=== PATIENT | male | born 1955 | race Caucasian/White ===

== ENCOUNTER 2018-05-03 10:08 | Emergency (ER) | payer OTHER ==
--- NOTE | 2018-05-03 10:23 | PDOC ---
History of Present Illness - General History Source: Patient Exam Limitations: No Limitations - History of Present Illness Initial Comments: 05/03/18 11:33 The patient is a 62 year old male with past medical history of HTN, herniated disk, Hep C (?), ulcer, and arthritis (neck) presents to the emergency department complaining of L. inguinal pain for the past 3 days. The patient reports a non radiating pain to the L. inguinal region associated with a lump that comes and goes. The patient reports associated concern of multiple episodes of nonbloody, nonbilious emesis and watery BM (1 day prior). Denies fever, chills, cough or a headache. Denies diarrhea or constipation. Denies chest pain or shortness of breath. Denies dysuria, hematuria, frequency or urgency to urinate. Allergies: NKDA. Social history: Current everyday smoker. Reports the daily use of wine and beer. Reports the use of marijuana and cocaine. Surgical history: Prostate surg. PCP: Gurmeet Rebolledo ([facility]). <Yara Elam - Last Filed: 05/03/18 12:32> <Susan Messina - Last Filed: 05/03/18 18:14> - General Chief Complaint: Pain, Acute Stated Complaint: GROIN PAIN Time Seen by Provider: 05/03/18 10:23 Past History <Yara Elam - Last Filed: 05/03/18 12:32> - Past Medical History Anemia: No Asthma: No Cancer: No Cardiac Disorders: No CVA: No COPD: No CHF: No Dementia: No Diabetes: No Disorders: No HTN: Yes Hypercholesterolemia: No Thyroid Disease: No - Surgical History Neurologic Surgery: No - Suicide/Smoking/Psychosocial Hx Smoking History: Current every day smoker Have you smoked in the past 12 months: Yes Number of Cigarettes Smoked Daily: 8 'Breaking Loose' booklet given: 06/10/16 Hx Alcohol Use: Yes (beer, wine almost daily) Drug/Substance Use Hx: Yes (daily marijuana, no cocaine x 4 years) Substance Use Type: Alcohol, Cocaine, Marijuana Hx Substance Use Treatment: Yes (detox, rehab, [facility] New focus) <Susan Messina - Last Filed: 05/03/18 18:14> - Past Medical History Allergies/Adverse Reactions: Allergies Allergy/AdvReac Type Severity Reaction Status Date / Time No Known Allergies Allergy Verified 05/03/18 10:23 Home Medications: Ambulatory Orders Amlodipine Besylate [Norvasc -] 10 mg PO DAILY 06/03/16 Atorvastatin Ca [Lipitor] 10 mg PO HS 06/03/16 Ranitidine [Zantac -] 150 mg PO BID 06/03/16 Tamsulosin HCl [Flomax] 0.4 mg PO DAILY 06/03/16 Gabapentin [Neurontin -] 300 mg PO Q8H 06/10/16 Ondansetron HCl [Zofran] 4 mg PO TID PRN #9 tablet 05/03/18 Review of Systems - Review of Systems Able to Perform ROS?: Yes Comments:: 05/03/18 11:33 GENERAL/CONSTITUTIONAL: No fever or chills. No weakness. HEAD, EYES, EARS, NOSE AND THROAT: No change in vision. No ear pain or discharge. No sore throat. CARDIOVASCULAR: No chest pain or shortness of breath. RESPIRATORY: No cough, wheezing, or hemoptysis. GASTROINTESTINAL: (+) nausea and vomiting, watery BM. (+) L. inguinal pain w/ a lump. No diarrhea or constipation. GENITOURINARY: No dysuria, frequency, or change in urination. MUSCULOSKELETAL: No joint or muscle swelling or pain. No neck or back pain. SKIN: No rash NEUROLOGIC: No headache, vertigo, loss of consciousness, or change in strength/ sensation. ENDOCRINE: No increased thirst. No abnormal weight change. HEMATOLOGIC/LYMPHATIC: No anemia, easy bleeding, or history of blood clots. ALLERGIC/IMMUNOLOGIC: No hives or skin allergy. <Yara Elam - Last Filed: 05/03/18 12:32> *Physical Exam - Vital Signs Last Vital Signs Temp Pulse Resp BP Pulse Ox 98 F 105 H 18 129/94 99 05/03/18 10:08 05/03/18 10:08 05/03/18 10:08 05/03/18 10:08 05/03/18 10:08 - Physical Exam Comments: 05/03/18 12:32 GENERAL: Awake, alert, and fully oriented, in no acute distress HEAD: No signs of trauma EYES: PERRLA, EOMI, sclera anicteric, conjunctiva clear ENT: Auricles normal inspection, hearing grossly normal, nares patent, oropharynx clear without exudates. Moist mucosa NECK: Normal ROM, supple, no lymphadenopathy, JVD, or masses LUNGS: Breath sounds equal, clear to auscultation bilaterally. No wheezes, and no crackles HEART: Regular rate and rhythm, normal S1 and S2, no murmurs, rubs or gallops ABDOMEN:(+) Mild pain to palpation diffused, worse in the inguinal region w/ Slight bulge, No perceptible increation hernia. Soft, normoactive bowel sounds. No guarding, no rebound. No masses. No CVA tenderness. Normal testicular exam. Normal penial exam. EXTREMITIES: Normal range of motion, no edema. No clubbing or cyanosis. No cords, erythema, or tenderness NEUROLOGICAL: Cranial nerves II through XII grossly intact. Normal speech, normal gait SKIN: Warm, Dry, normal turgor, no rashes or lesions noted. <Yara Elam - Last Filed: 05/03/18 12:32> ED Treatment Course - LABORATORY CBC & Chemistry Diagram: 05/03/18 11:25 05/03/18 11:25 <Yara Elam - Last Filed: 05/03/18 12:32> - LABORATORY CBC & Chemistry Diagram: 05/03/18 11:25 05/03/18 11:25 <Susan Messina - Last Filed: 05/03/18 18:14> Medical Decision Making - Medical Decision Making 05/03/18 17:25 Pt presents to the ED complaining of generalized abdominal pain, along with multiple episodes of nausea and vomiting. <Susan Messina - Last Filed: 05/03/18 18:14> *DC/Admit/Observation/Transfer - Attestations Scribe Attestion: 05/03/18 11:34 Documentation prepared by Yara Elam, acting as biomedical engineering professor for Susan Messina MD. <Yara Elam - Last Filed: 05/03/18 12:32> - Discharge Dispostion Decision to Admit order: No <Susan Messina - Last Filed: 05/03/18 18:14> Diagnosis at time of Disposition: Abdominal pain Qualifiers: Abdominal location: generalized Qualified Code(s): R10.84 - Generalized abdominal pain - Discharge Dispostion Disposition: HOME Condition at time of disposition: Good - Referrals Referrals: Gurmeet Hernandez MD [Primary Care Provider] - Aiden Mckeon MD [Staff Physician] - - Patient Instructions Printed Discharge Instructions: DI for Abdominal Pain-Adult
[2018-05-03 10:27] VITALS: BMI 30.7
[2018-05-03] MEDS ORDERED: ACETAMINOPHEN 1000 MG/100 ML VIAL (NON FORMULARY) IVPB ONE (10:32)
[2018-05-03] MEDS ORDERED: ONDANSETRON 4 MG/2 ML VIAL IVPUSH ONE (10:33)
[2018-05-03] MEDS ORDERED: ACETAMINOPHEN INJECTION 100 ML IVPB ONE (11:09)
[2018-05-03] MEDS ORDERED: ONDANSETRON 4 MG/2 ML VIAL ONE (11:09)
[2018-05-03 11:33] LABS: BASO % 0.3 % (0-2.0); EOS % 0.2 % (0-4.5); HEMATOCRIT 44.2 % (35.4-49); HEMOGLOBIN 15.6 GM/dL (11.7-16.9); LYMPH % 8.5 % (8-40); MCH 33.6 pg (25.7-33.7); MCHC 35.2 g/dl (32.0-35.9); MEAN CELL VOLUME 95.3 fl (80-96); MEAN PLT VOLUME 7.5 fl (7.5-11.1); MONO % 10.4 % (3.8-10.2); NEUT % 80.6 % (42.8-82.8); PLATELET COUNT 256 K/MM3 (134-434); RBC 4.64 M/mm3 (4.00-5.60); RDW 13.2 % (11.9-15.9)
[2018-05-03 11:55] LABS: ALBUMIN 4.7 g/dl (3.4-5.0); ANION GAP 9 (8-16); BLOOD UREA NITROGEN 14 mg/dL (7-18); CALCIUM 9.9 mg/dL (8.5-10.1); CHLORIDE 89 mmol/L (98-107); CO2 26 mmol/L (21-32); CREATININE 1.3 mg/dL (0.7-1.3); GLUCOSE,RANDOM 89 mg/dL (74-106); POTASSIUM 4.5 mmol/L (3.5-5.1); SGOT/AST 25 U/L (15-37); SGPT/ALT 23 U/L (12-78)
[2018-05-03 11:57] LABS: ALK PHOS 60 U/L (45-117)
[2018-05-03 11:59] LABS: SODIUM 124 mmol/L (136-145)
[2018-05-03] MEDS ORDERED: SODIUM CHLORIDE 0.9% 500 ML INFUS.BAG IV ONE (12:38)
[2018-05-03 18:21] VITALS: BP 129/90; PULSE 88; TEMP 98
== END 2018-05-03 18:21 | disposition home or self-care (01) ==
LOC: JER 10:08
PROC: 3E033NZ Introduction of Analgesics, Hypnotics, Sedatives into Peripheral Vein, Percutaneous Approach (ICD-10-PCS; principal; 2018-05-03)
PROC: 3E033GC Introduction of Other Therapeutic Substance into Peripheral Vein, Percutaneous Approach (ICD-10-PCS; 2018-05-03)
DX: R10.84 Generalized abdominal pain (principal); I10 Essential (primary) hypertension; M47.892 Other spondylosis, cervical region
CPT/HCPCS: 36415; 74177-TC; 80053; 83605; 85025; 99282-25; J0131

== ENCOUNTER 2019-02-24 23:01 | Observation (INO) | payer OTHER ==
--- NOTE | 2019-02-24 23:51 | PDOC ---
History of Present Illness <Claire Aguero - Last Filed: 02/25/19 00:46> - General History Source: Patient Exam Limitations: No Limitations - History of Present Illness Initial Comments: 02/24/19 23:44 63 y/o male with PMH of HTN, hepatits C (previously treated) herniated discs, alcohol abuse presented to the ED after having a syncopal episode at home. Patient states that he was going about his normal day, had 3 beers, then a few hours later started to feel diaphoretic, had some epigastric pain and then next thing he knew he was in the EMS. He denies having any chest pains, trouble breathing, numbness or tingling preceding the event. However he does recall urinating on himself. He does state that he suffers from painful hemorrhoids and does endorse that he has been straining alot more recently and did have to strain this AM when he went to the bathroom. He does not recall if he hit his head or not. He had a similar episode like this a few years ago and did not have any real workup done for it in the past. He denies any recent sickness or any recent travel. Timing/Duration: constant Severity: mild <Sofiya Sidhu - Last Filed: 02/25/19 01:26> - General Chief Complaint: Syncope/Near Syncope Stated Complaint: SYNCOPE Time Seen by Provider: 02/24/19 23:18 Past History <Claire Aguero - Last Filed: 02/25/19 00:46> - Travel Traveled outside of the country in the last 30 days: No Close contact w/someone who was outside of country & ill: No - Past Medical History Anemia: No Asthma: No Cancer: No Cardiac Disorders: No CVA: No COPD: No CHF: No Dementia: No Diabetes: No Disorders: No HTN: Yes Hypercholesterolemia: No Thyroid Disease: No - Surgical History Neurologic Surgery: No - Family Disease History Family Disease History: Heart Disease: Father ( from [place] in his 70's) , Brother (had a heart attack at 53) - Suicide/Smoking/Psychosocial Hx Smoking History: Current every day smoker Have you smoked in the past 12 months: Yes Number of Cigarettes Smoked Daily: 8 'Breaking Loose' booklet given: 06/10/16 Hx Alcohol Use: Yes (beer, wine almost daily) Drug/Substance Use Hx: Yes (daily marijuana, no cocaine x 4 years) Substance Use Type: Alcohol, Cocaine, Heroin, Marijuana Hx Substance Use Treatment: Yes (detox, rehab, [facility]) <Sofiya Sidhu - Last Filed: 02/25/19 01:26> - Past Medical History Allergies/Adverse Reactions: Allergies Allergy/AdvReac Type Severity Reaction Status Date / Time No Known Allergies Allergy Verified 05/03/18 10:23 Home Medications: Ambulatory Orders Amlodipine Besylate [Norvasc -] 10 mg PO DAILY 06/03/16 Atorvastatin Ca [Lipitor] 10 mg PO HS 06/03/16 Ranitidine [Zantac -] 150 mg PO BID 06/03/16 Tamsulosin HCl [Flomax] 0.4 mg PO DAILY 06/03/16 Gabapentin [Neurontin -] 300 mg PO Q8H 06/10/16 Ondansetron HCl [Zofran] 4 mg PO TID PRN #9 tablet 05/03/18 Review of Systems - Review of Systems Able to Perform ROS?: Yes Is the patient limited Macedonian proficient: Yes Constitutional: Yes: Diaphoresis HEENTM: No: Blurred Vision Respiratory: No: Cough, Shortness of Breath Cardiac (ROS): Yes: Syncope : No: Dysuria Musculoskeletal: Yes: Back Pain Neurological: Yes: Headache, Weakness <Sofiya Sidhu - Last Filed: 02/25/19 01:26> *Physical Exam - Vital Signs Last Vital Signs Temp Pulse Resp BP Pulse Ox 98.1 F 74 19 112/73 97 02/24/19 23:01 02/24/19 23:01 02/24/19 23:01 02/24/19 23:01 02/24/19 23:01 <Claire Aguero - Last Filed: 02/25/19 00:46> - Physical Exam General Appearance: Yes: Disheveled Neck: positive: Normal Thyroid Respiratory/Chest: positive: Lungs Clear, Normal Breath Sounds. negative: Chest Tender Cardiovascular: positive: Regular Rhythm, Regular Rate, S1, S2. 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 negative: Numbness Deep Tendon Reflexes: Ankle (L): 2+, Ankle (R): 2+, Knee (L): 2+, Knee (R): 2+, Bicep (L): 2+, Bicep (R): 2+, Tricep (L): 2+, Tricep (R): 2+ <Sofiya Sidhu - Last Filed: 02/25/19 01:26> ED Treatment Course - LABORATORY CBC & Chemistry Diagram: 02/25/19 00:03 02/25/19 00:03 - ADDITIONAL ORDERS Additional order review: Laboratory Results 02/25/19 00:03 Sodium 129 L Potassium 3.8 Chloride 96 L Carbon Dioxide 26 Anion Gap 8 BUN 12 Creatinine 0.9 Creat Clearance w eGFR 85.79 Random Glucose 87 Calcium 8.8 Total Bilirubin 0.4 AST 23 ALT 22 Alkaline Phosphatase 52 Creatine Kinase 110 Troponin I < 0.02 Total Protein 7.6 Albumin 3.8 Lipase 199 Alcohol, Quantitative 101.1 H 02/25/19 00:03 RBC 4.14 MCV 95.0 MCHC 35.3 RDW 13.3 MPV 7.3 L Neutrophils % 68.5 Lymphocytes % 18.0 D Monocytes % 9.4 Eosinophils % 3.1 D Basophils % 1.0 D - RADIOLOGY Radiology Studies Ordered: Category Date Time Status CHEST X-RAY PORTABLE* [RAD] Stat Radiology 02/24/19 23:55 Taken <Claire Aguero - Last Filed: 02/25/19 00:46> - LABORATORY CBC & Chemistry Diagram: 02/25/19 00:03 02/25/19 00:03 - RADIOLOGY Radiology Studies Ordered: Category Date Time Status HEAD CT WITHOUT CONTRAST [CT] Stat CT Scan 02/24/19 23:44 Ordered <Sofiya Sidhu - Last Filed: 02/25/19 01:26> Medical Decision Making - Medical Decision Making 02/25/19 00:03 cbc/cmp/amylase/lipase/trop ekg head CT CXRAY neuro consult placed head CT normal trop neg; hyponatremic at 129 microblog placed to symphony for admission 02/25/19 00:08 02/25/19 00:56 <Sofiya Sidhu - Last Filed: 02/25/19 01:26> *DC/Admit/Observation/Transfer - Discharge Dispostion Decision to Admit order: Yes <Claire Aguero - Last Filed: 02/25/19 00:46> - Attestations Physician Attestion: 02/25/19 01:25 sofiya sidhu <Sofiya Sidhu - Last Filed: 02/25/19 01:26> Diagnosis at time of Disposition: Syncope, Hyponatremia - Discharge Dispostion Condition at time of disposition: Guarded
[2019-02-24] MEDS ORDERED: SODIUM CHLORIDE 0.9% 500 ML INFUS.BAG IV ONE (23:54)
--- NOTE | 2019-02-24 23:54 | PDOC ---
Attending Attestation - HPI HPI: 02/25/19 00:00 The patient is a 63 year old male with a PMH of HTN, HepC, EtOH abuse, chronic back pain who presents to the ER for evaluation of a syncopal episode. Patient states he had 3 days today, and had epigastric pain a few hours later. Patient subsequently woke up on the ground. Unknown how long the patient was on the ground for. Unknown if the patient had head trauma. Patient had a similar syncopal episode several year ago but was not evaluated for it. Patient normally has 5-6 beers daily. Brother had an CO at 52 and her mother had an CO in her 60s. The patient denies chest pain, shortness of breath, headache and dizziness. Denies fever, chills, nausea, vomit, diarrhea and constipation. Denies dysuria, frequency, urgency and hematuria. Allergies: NKA Past surgical history: None reported. Social history: Former heroin user, smokes a pack of cigarettes daily, EtOH daily - Physicial Exam PE: 02/25/19 00:45 ADULT EXAM GENERAL: Awake, alert, and fully oriented, in no acute distress HEAD: No signs of trauma EYES: PERRLA, EOMI, sclera anicteric, conjunctiva clear ENT: Auricles normal inspection, hearing grossly normal, nares patent, oropharynx clear without exudates. Moist mucosa NECK: Normal ROM, supple, no lymphadenopathy, JVD, or masses LUNGS: Breath sounds equal, clear to auscultation bilaterally. No wheezes, and no crackles HEART: Regular rate and rhythm, normal S1 and S2, no murmurs, rubs or gallops ABDOMEN: Soft, nontender, normoactive bowel sounds. No guarding, no rebound. No masses EXTREMITIES: Normal range of motion, no edema. No clubbing or cyanosis. No cords , erythema, or tenderness NEUROLOGICAL: Cranial nerves II through XII grossly intact. Normal speech, normal gait SKIN: Warm, Dry, normal turgor, no rashes or lesions noted. <Consuelo Pierre - Last Filed: 02/25/19 00:45> - Resident Resident Name: Unique Sidhu - ED Attending Attestation I have performed the following: I have examined & evaluated the patient, The case was reviewed & discussed with the resident, I agree w/resident's findings & plan - Medical Decision Making 02/25/19 01:14 Patient Name: EFREM SQUIRES THIS IS A PRELIMINARY REPORT FROM [facility] DATE OF SERVICE: 2019-02-25 00:18:22 IMAGES: 174 EXAM: HEAD CT WITHOUT CONTRAST HISTORY: Syncope COMPARISON: None. FINDINGS: The ventricular system is midline and nondilated. The sulcal pattern is normal for the patient's age. There is no bleed, mass, extra-axial fluid collection or mass effect. No skull fracture or skull lesion is identified. The visualized paranasal sinuses and mastoid air cells are clear. IMPRESSION: No acute pathology. 02/25/19 04:18 Pt will be admitted for hyponatremia and syncope and he will be observed overnight, <Claire Aguero - Last Filed: 02/25/19 04:18>
[2019-02-24] MEDS ORDERED: FAMOTIDINE 20 MG/50 ML IVPB 20 MG/50 ML MG IVPB ONE (23:56)
[2019-02-24 23:57] VITALS: BMI 27.8
[2019-02-25 00:14] LABS: EOS % 3.1 % (0-4.5); HEMATOCRIT 39.3 % (35.4-49); HEMOGLOBIN 13.9 GM/dL (11.7-16.9); MCH 33.5 pg (25.7-33.7); MCHC 35.3 g/dl (32.0-35.9); MEAN PLT VOLUME 7.3 fl (7.5-11.1); MONO % 9.4 % (3.8-10.2); NEUT % 68.5 % (42.8-82.8); PLATELET COUNT 210 K/MM3 (134-434); RBC 4.14 M/mm3 (4.00-5.60); RDW 13.3 % (11.9-15.9)
[2019-02-25 00:39] LABS: ALBUMIN 3.8 g/dl (3.4-5.0); ALK PHOS 52 U/L (45-117); ANION GAP 8 MMOL/L (8-16); BILIRUBIN,TOTAL 0.4 mg/dL (0.2-1); BLOOD UREA NITROGEN 12 mg/dL (7-18); CALCIUM 8.8 mg/dL (8.5-10.1); CHLORIDE 96 mmol/L (98-107); CO2 26 mmol/L (21-32); CREATININE 0.9 mg/dL (0.55-1.3); GLUCOSE,RANDOM 87 mg/dL (74-106); LIPASE 199 U/L (73-393); POTASSIUM 3.8 mmol/L (3.5-5.1); SGOT/AST 23 U/L (15-37); SGPT/ALT 22 U/L (13-61); SODIUM 129 mmol/L (136-145); TOT PROT 7.6 g/dl (6.4-8.2)
[2019-02-25] MEDS ORDERED: FAMOTIDINE 20 MG/50 ML IVPB 20 MG/50 ML MG IVPB ONE (00:50)
--- NOTE | 2019-02-25 01:54 | HP ---
CHIEF COMPLAINT: syncope PCP: HISTORY OF PRESENT ILLNESS: Patient is a 63 y/o M w/ PMHx HTN, herniated discs, EtOH abuse, remote polysubstance abuse, hepatitis C s/p completion of treatment, p/w loss of consciousness at home. Pt states he was sitting down at home, began to feel warm , and then woke up on the floor an unspecified amount of time later. Affirms loss of urinary continence, denies trauma to the tongue or blood in his mouth. He has no memory of intervening events. States he had consumed 3 18 oz. beers prior to the episode, consistent with daily alcohol consumption. Otherwise ROS negative. On presentation Pt is afebrile w/ stable vitals. EtOH level 101. Labs unremarkable apart from Na 129 but this is consistent with prior Hx. Head CT negative. ER course was notable for: (1) EtOH 101 (2) Na 129 (3) Head CT negative Recent Travel: PAST MEDICAL HISTORY: As per HPI PAST SURGICAL HISTORY: Social History: Smoking: daily, currently < 1ppd, overall pack years unclear Alcohol: daily Drugs: remote history of heroin and cocaine Family History: non-contributory Allergies No Known Allergies Allergy (Verified 05/03/18 10:23) HOME MEDICATIONS: Home Medications Medication Instructions Recorded Amlodipine Besylate [Norvasc -] 10 mg PO DAILY 06/03/16 Atorvastatin Ca [Lipitor] 10 mg PO HS 06/03/16 Ranitidine [Zantac -] 150 mg PO BID 06/03/16 Tamsulosin HCl [Flomax] 0.4 mg PO DAILY 06/03/16 Gabapentin [Neurontin -] 300 mg PO Q8H 06/10/16 Ondansetron HCl [Zofran] 4 mg PO TID PRN #9 tablet 05/03/18 REVIEW OF SYSTEMS PHYSICAL EXAMINATION Vital Signs - 24 hr 02/24/19 23:01 Temperature 98.1 F Pulse Rate 74 Respiratory 19 Rate Blood Pressure 112/73 O2 Sat by Pulse 97 Oximetry (%) GENERAL: A&Ox3, NAD HEENT: NC/AT, PERRLA, EOMI, MMM, anicteric NECK: Normal range of motion, supple without lymphadenopathy, JVD, or masses. LUNGS: CTA b/l HEART: RRR no m/r/g ABDOMEN: +bs, soft, NT, ND MUSCULOSKELETAL: Normal range of motion at all joints. No bony deformities or tenderness. No CVA tenderness. UPPER EXTREMITIES: 2+ pulses, warm, well-perfused. No cyanosis. No clubbing. No peripheral edema. LOWER EXTREMITIES: 2+ pulses, warm, well-perfused. No calf tenderness. No peripheral edema. 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 Pain to hip flexion limiting LE examination, 5/5 plantar/dorsiflexion b/l PSYCHIATRIC: Cooperative. Good eye contact. Appropriate mood and affect. SKIN: Warm, dry, normal turgor, no rashes or lesions noted, normal capillary refill. Laboratory Results - last 24 hr 02/25/19 02/25/19 00:03 00:03 WBC 9.0 RBC 4.14 Hgb 13.9 Hct 39.3 MCV 95.0 MCH 33.5 MCHC 35.3 RDW 13.3 Plt Count 210 MPV 7.3 L Absolute Neuts (auto) 6.2 Neutrophils % 68.5 Lymphocytes % 18.0 D Monocytes % 9.4 Eosinophils % 3.1 D Basophils % 1.0 D Nucleated RBC % 0 Sodium 129 L Potassium 3.8 Chloride 96 L Carbon Dioxide 26 Anion Gap 8 BUN 12 Creatinine 0.9 Creat Clearance w eGFR 85.79 Random Glucose 87 Calcium 8.8 Total Bilirubin 0.4 AST 23 ALT 22 Alkaline Phosphatase 52 Creatine Kinase 110 Troponin I < 0.02 Total Protein 7.6 Albumin 3.8 Lipase 199 Alcohol, Quantitative 101.1 H ASSESSMENT/PLAN: 63 y/o M w/ PMHx HTN, herniated discs, EtOH abuse, remote polysubstance abuse, hepatitis C s/p completion of treatment, p/w unexplained loss of consciousness at home A: -syncopal episode w/o clear etiology -EtOH abuse -hyponatremia likely chronic 2/2 EtOH -current smoker -herniated disc -BP normotensive, orthostatics checked at POC in ED and negative P: -LR @ 77 -neurology consulted -monitor BMP -phone counselor EtOH and smoking cessation -outpt pain mgmt f/u for herniated discs -restarted home Zantac, held home Flomax in light of syncope -regular diet -full code -SCDs for DVT PPx -observe on med/surg Visit type - Emergency Visit Emergency Visit: Yes ED Registration Date: 02/25/19 Care time: The patient presented to the Emergency Department on the above date and was hospitalized for further evaluation of their emergent condition. - New Patient This patient is new to me today: Yes Date on this admission: 02/25/19 - Critical Care Critical Care patient: No
--- NOTE | 2019-02-25 01:58 | PN ---
Teaching Attending Note Name of Resident: Franco Gallegos ATTENDING PHYSICIAN STATEMENT I saw and evaluated the patient. I reviewed the resident's note and discussed the case with the resident. I agree with the resident's findings and plan as documented. SUBJECTIVE: OBJECTIVE: AAOX3 S1 and s2 CTA good air entry PERRLA alcohol breath ASSESSMENT AND PLAN: this is a 63 y/o male patient with hx of chronic alcohol abuse, Hep C s/p 12 weeks treatment, HTN, presented after the patient had an episode of LOC patient stated that he is doing well in general, he said that tonight he didnt drink that much just 3-4 (18oz) beers usually he drinks more, he does not blame this episode on alcoho, patient was found also to be hyponatremic and according to him he had an episode of urine incontinence Hyponateramia 2/2 chronic beer intake send serum osm send urine osm urine electrolytes Syncope with possible seizure - 2/2 to alcohol 2/2 hyponatremia admit to tele neurology evaluation obtain orthostasis chronic alcohol intake: - CIWA - lorazepam 1mg q6hrs po - lorazepam 2mg IVP for seizure or alcohol withdrawal
[2019-02-25] MEDS ORDERED: LACTATED RINGERS SOLUTION 1,000 ML/1,000 ML INFUS.BAG IV SCH (02:00)
[2019-02-25 06:15] LABS: BASO % 0.9 % (0-2.0); HEMATOCRIT 38.6 % (35.4-49); HEMOGLOBIN 13.3 GM/dL (11.7-16.9); LYMPH % 29.8 % (8-40); MCH 32.8 pg (25.7-33.7); MCHC 34.6 g/dl (32.0-35.9); MEAN CELL VOLUME 94.9 fl (80-96); MEAN PLT VOLUME 7.7 fl (7.5-11.1); MONO % 10.1 % (3.8-10.2); NEUT % 54.2 % (42.8-82.8); PLATELET COUNT 190 K/MM3 (134-434); RBC 4.07 M/mm3 (4.00-5.60); RDW 13.1 % (11.9-15.9); WHITE BLOOD COUNT 6.3 K/mm3 (4.0-10.0)
[2019-02-25 06:41] LABS: ANION GAP 6 MMOL/L (8-16); BLOOD UREA NITROGEN 10 mg/dL (7-18); CALCIUM 8.5 mg/dL (8.5-10.1); CHLORIDE 100 mmol/L (98-107); CO2 24 mmol/L (21-32); CREATININE 0.9 mg/dL (0.55-1.3); GLUCOSE,RANDOM 112 mg/dL (74-106); MAGNESIUM 2.2 mg/dL (1.8-2.4); PHOSPHOROUS 3.5 mg/dL (2.5-4.9); POTASSIUM 4.1 mmol/L (3.5-5.1); SODIUM 130 mmol/L (136-145)
[2019-02-25 07:39] LABS: OSMOLALITY,SERUM 270 mosm/kg (278-305)
--- NOTE | 2019-02-25 07:55 | PN ---
Teaching Attending Note Name of Resident: Elsy Lincoln ATTENDING PHYSICIAN STATEMENT I saw and evaluated the patient. I reviewed the resident's note and discussed the case with the resident. I agree with the resident's findings and plan as documented. SUBJECTIVE: Patient is a 63 y/o male patient with hx of chronic alcohol abuse, Hep C s/p 12 weeks treatment, HTN, presented to ED. with LOC, as per patient that he didn't drink that much just 3-4 (18oz) beers usually he drinks more. He was found to have urinary incontinence. OBJECTIVE: Vital Signs Temperature 98.2 F 02/25/19 06:22 Pulse Rate 70 02/25/19 06:22 Respiratory Rate 19 02/25/19 06:22 Blood Pressure 99/66 02/25/19 06:22 O2 Sat by Pulse Oximetry (%) 96 02/25/19 06:22 GENERAL: The patient is awake, alert, and fully oriented, in no acute distress. HEAD: Normal with no signs of trauma. EYES: PERRL, extraocular movements intact, sclera anicteric, conjunctiva clear. ENT: Ears normal, oropharynx clear without exudates, moist mucous membranes. NECK: Trachea midline, full range of motion, supple. LUNGS: Breath sounds equal, clear to auscultation bilaterally, no wheezes, no crackles, no accessory muscle use. HEART: Regular rate and rhythm, S1, S2 without murmur, rub or gallop. ABDOMEN: Soft, nontender, nondistended, normoactive bowel sounds, no guarding, no rebound, no hepatosplenomegaly, no masses. EXTREMITIES: 2+ pulses, warm, well-perfused, no edema. NEUROLOGICAL: Cranial nerves II through XII grossly intact. Normal speech, gait not observed. PSYCH: Normal mood, normal affect. SKIN: Warm, dry, normal turgor, no rashes or lesions noted CBCD WBC 6.3 K/mm3 (4.0-10.0) 02/25/19 05:55 RBC 4.07 M/mm3 (4.00-5.60) 02/25/19 05:55 Hgb 13.3 GM/dL (11.7-16.9) 02/25/19 05:55 Hct 38.6 % (35.4-49) 02/25/19 05:55 MCV 94.9 fl (80-96) 02/25/19 05:55 MCHC 34.6 g/dl (32.0-35.9) 02/25/19 05:55 RDW 13.1 % (11.9-15.9) 02/25/19 05:55 Plt Count 190 K/MM3 (134-434) 02/25/19 05:55 MPV 7.7 fl (7.5-11.1) 02/25/19 05:55 CMP Sodium 130 mmol/L (136-145) L 02/25/19 05:55 Potassium 4.1 mmol/L (3.5-5.1) 02/25/19 05:55 Chloride 100 mmol/L (98-107) 02/25/19 05:55 Carbon Dioxide 24 mmol/L (21-32) 02/25/19 05:55 Anion Gap 6 MMOL/L (8-16) L 02/25/19 05:55 BUN 10 mg/dL (7-18) 02/25/19 05:55 Creatinine 0.9 mg/dL (0.55-1.3) 02/25/19 05:55 Creat Clearance w eGFR 85.79 (>60) 02/25/19 05:55 Random Glucose 112 mg/dL (74-106) H 02/25/19 05:55 Calcium 8.5 mg/dL (8.5-10.1) 02/25/19 05:55 Total Bilirubin 0.4 mg/dL (0.2-1) 02/25/19 00:03 AST 23 U/L (15-37) 02/25/19 00:03 ALT 22 U/L (13-61) 02/25/19 00:03 Alkaline Phosphatase 52 U/L (45-117) 02/25/19 00:03 Total Protein 7.6 g/dl (6.4-8.2) 02/25/19 00:03 Albumin 3.8 g/dl (3.4-5.0) 02/25/19 00:03 CARDIAC ENZYMES Creatine Kinase 110 U/L (26-308) 02/25/19 00:03 Troponin I < 0.02 ng/ml (0.00-0.05) 02/25/19 05:55 Current Medications Generic Name Dose Route Start Last Admin Trade Name Freq PRN Reason Stop Dose Admin Lactated Ringer's 1,000 ml in 1,000 mls @ 75 mls/hr 02/25/19 02:00 02/25/19 03:44 Lactated Ringers Solution IV 75 mls/hr ASDIR REAGAN Administration Ranitidine HCl 150 mg 02/25/19 10:00 Zantac - PO BID [facility] Home Medications Medication Instructions Recorded Amlodipine Besylate [Norvasc -] 10 mg PO DAILY 06/03/16 Atorvastatin Ca [Lipitor] 10 mg PO HS 06/03/16 Ranitidine [Zantac -] 150 mg PO BID 06/03/16 Tamsulosin HCl [Flomax] 0.4 mg PO DAILY 06/03/16 Gabapentin [Neurontin -] 300 mg PO Q8H 06/10/16 Ondansetron HCl [Zofran] 4 mg PO TID PRN #9 tablet 05/03/18 Laboratory Tests 02/25/19 02/25/19 02/25/19 00:03 06:17 06:17 Urine Osmolality 240 L Ur Random Sodium 38 L Urine Creatinine 52.0 Alcohol, Quantitative 101.[address]: Negative CXR: No acute process ASSESSMENT AND PLAN: Patient is a 63 y/o M with PMHx HTN, herniated discs, EtOH abuse, remote polysubstance abuse, hepatitis C s/p completion of treatment, HTN, presented to ED with syncopal episode. # Acute hyponatremia: with urine osm: 240, urine sodium 38, serum osm. 270 # Alcohol intoxication not withdrawing, librium prn for withdrawel # syncope most likely due to etoh intoxication # Hx of hepatitis C s/p treatment # Hx of HTN will hold since bp on th lower end DVT Px: Lovenox
--- NOTE | 2019-02-25 09:49 | CON.NEURO ---
Consult - Alcohol/Substance Use Hx Alcohol Use: Yes (beer, wine almost daily) - Smoking History Smoking history: Current every day smoker Have you smoked in the past 12 months: Yes Aproximately how many cigarettes per day: 8 Home Medications - Allergies Allergies/Adverse Reactions: Allergies Allergy/AdvReac Type Severity Reaction Status Date / Time No Known Allergies Allergy Verified 05/03/18 10:23 - Home Medications Home Medications: Ambulatory Orders Amlodipine Besylate [Norvasc -] 10 mg PO DAILY 06/03/16 Atorvastatin Ca [Lipitor] 10 mg PO HS 06/03/16 Ranitidine [Zantac -] 150 mg PO BID 06/03/16 Tamsulosin HCl [Flomax] 0.4 mg PO DAILY 06/03/16 Gabapentin [Neurontin -] 300 mg PO Q8H 06/10/16 Ondansetron HCl [Zofran] 4 mg PO TID PRN #9 tablet 05/03/18 Family Disease History - Family Disease History Family Disease History: Other: Father Physical Exam-Neuro Vital Signs: Vital Signs Temperature 98.2 F 02/25/19 06:22 Pulse Rate 70 02/25/19 06:22 Respiratory Rate 19 02/25/19 06:22 Blood Pressure 99/66 02/25/19 06:22 O2 Sat by Pulse Oximetry (%) 96 02/25/19 06:22 Labs: CBC, BMP 02/25/19 05:55 02/25/19 05:55 Assessment/Plan cc Episode of passing out, History of Chronic radicular low back pain HPI 63 year old male history of HTN, Hep C, Herniated disc, Alcohol abuse came with sycopal episode. Patient has episode of passing out, there is incidence of urinaration . Patient denies any seizure like activity, tongue bite. Patient has similar episode in past. There is documentation of episode of incontinence in chart but he denies to me. He does have chronic low back pain and seeing pain managmeent and had work up done in past. Patient has been given COURTNEY several time. He denies any recent trauma, fever or cacner. PMH as above SH,FH,ROS reviewed in chart SH he is smoker and drinks beer everyday, marijuna everyday , Allergies/Adverse Reactions: Allergies Allergy/AdvReac Type Severity Reaction Status Date / Time No Known Allergies Allergy Verified 05/03/18 10:23 Home Medications: Amlodipine Besylate [Norvasc -] 10 mg PO DAILY 06/03/16 Atorvastatin Ca [Lipitor] 10 mg PO HS 06/03/16 Ranitidine [Zantac -] 150 mg PO BID 06/03/16 Tamsulosin HCl [Flomax] 0.4 mg PO DAILY 06/03/16 Gabapentin [Neurontin -] 300 mg PO Q8H 06/10/16 Ondansetron HCl [Zofran] 4 mg PO TID PRN #9 tablet 05/03/18 NEUROLOGICAL EXAMINATION Alert oriented x 3, speech is normal, no neck stiffness EOMI, pupils reactive, no face asymmetry, no tongue bite no pronator drift, 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 syncopal episode, unlikely to be seizure, I recommend to do eeg, no need for brain mri, no need for AED 2. Chronic radicular low back pain ( work up done outpatient , and seeing pain managemnet and had several COURTNEY ) , stable and chronic problem, no evidence of cord compression, he has old L5-s1 radiculopathy PT if he stays in hospital, follow up with pain management as outpatient Thanking you so much Leonel Sanchez MD
[2019-02-25] MEDS ORDERED: RANITIDINE HCL 150 MG TABLET (FP) PO SCH (10:00)
[2019-02-25] MEDS ORDERED: RANITIDINE HCL 150 MG TABLET (FP) ONE (10:24)
--- NOTE | 2019-02-25 10:27 | EKG ---
Test Reason : Blood Pressure : / mmHG Vent. Rate : 072 BPM Atrial Rate : 072 BPM P-R Int : 214 ms QRS Dur : 100 ms QT Int : 400 ms P-R-T Axes : 039 -55 027 degrees QTc Int : 438 ms SINUS RHYTHM WITH 1ST DEGREE A-V BLOCK LEFT ANTERIOR FASCICULAR BLOCK ABNORMAL ECG NO PREVIOUS ECGS AVAILABLE Confirmed by PRANAY MOSLEY MD ([id number]) on 02/25/2019 10:26:48 AM Referred By: Confirmed By:PRANAY MOSLEY MD
[2019-02-25 16:11] VITALS: TEMP 97.2
[2019-02-25] MEDS ORDERED: SODIUM CHLORIDE 250 ML IV STA (16:19)
--- NOTE | 2019-02-25 16:19 | PN ---
Physical Exam: SUBJECTIVE: Patient seen and examined this AM. Has had multiple similar episodes in the past. Unable to recall event however. No repeat syncopal episodes since. OBJECTIVE: Vital Signs Period Temp Pulse Resp BP Sys/Diaz Pulse Ox Last 24 Hr 97.2 F-98.2 F 70-76 18-24 99-112/66-73 96-99 GENERAL: A&Ox3 HEAD: NCAT EYES: PERRL, EOMI ENT: Moist mucous membranes NECK: Supple LUNGS: Diminished breath sounds at the bases, no wheezes, no crackles HEART: Regular rate and rhythm, S1, S2 without murmur ABDOMEN: Soft, Mild but diffuse tenderness to palpation, nondistended, + bowel sounds, no guarding EXTREMITIES: no edema. NEUROLOGICAL: Cranial nerves II through XII grossly intact. SKIN: Warm, dry Laboratory Results - last 24 hr 02/25/19 02/25/19 02/25/19 00:03 00:03 05:55 WBC 9.0 6.3 RBC 4.14 4.07 Hgb 13.9 13.3 Hct 39.3 38.6 MCV 95.0 94.9 MCH 33.5 32.8 MCHC 35.3 34.6 RDW 13.3 13.1 Plt Count 210 190 MPV 7.3 L 7.7 Absolute Neuts (auto) 6.2 3.4 Neutrophils % 68.5 54.2 D Lymphocytes % 18.0 D 29.8 D Monocytes % 9.4 10.1 Eosinophils % 3.1 D 5.0 H Basophils % 1.0 D 0.9 Nucleated RBC % 0 0 Sodium 129 L Potassium 3.8 Chloride 96 L Carbon Dioxide 26 Anion Gap 8 BUN 12 Creatinine 0.9 Creat Clearance w eGFR 85.79 Random Glucose 87 Serum Osmolality Calcium 8.8 Phosphorus Magnesium Total Bilirubin 0.4 AST 23 ALT 22 Alkaline Phosphatase 52 Creatine Kinase 110 Troponin I < 0.02 Total Protein 7.6 Albumin 3.8 Lipase 199 Urine Osmolality Ur Random Sodium Urine Creatinine Alcohol, Quantitative 101.1 H 02/25/19 02/25/19 02/25/19 05:55 05:55 06:17 WBC RBC Hgb Hct MCV MCH MCHC RDW Plt Count MPV Absolute Neuts (auto) Neutrophils % Lymphocytes % Monocytes % Eosinophils % Basophils % Nucleated RBC % Sodium 130 L Potassium 4.1 Chloride 100 Carbon Dioxide 24 Anion Gap 6 L BUN 10 Creatinine 0.9 Creat Clearance w eGFR 85.79 Random Glucose 112 H Serum Osmolality 270 L Calcium 8.5 Phosphorus 3.5 Magnesium 2.2 Total Bilirubin AST ALT Alkaline Phosphatase Creatine Kinase Troponin I < 0.02 Total Protein Albumin Lipase Urine Osmolality 240 L Ur Random Sodium Urine Creatinine Alcohol, Quantitative 02/25/19 06:17 WBC RBC Hgb Hct MCV MCH MCHC RDW Plt Count MPV Absolute Neuts (auto) Neutrophils % Lymphocytes % Monocytes % Eosinophils % Basophils % Nucleated RBC % Sodium Potassium Chloride Carbon Dioxide Anion Gap BUN Creatinine Creat Clearance w eGFR Random Glucose Serum Osmolality Calcium Phosphorus Magnesium Total Bilirubin AST ALT Alkaline Phosphatase Creatine Kinase Troponin I Total Protein Albumin Lipase Urine Osmolality Ur Random Sodium 38 L Urine Creatinine 52.0 Alcohol, Quantitative Active Medications Lactated Ringer's (Lactated Ringers Solution) 1,000 ml in 1,000 mls @ 75 mls/ hr IV ASDIR [facility] Last Admin: 02/25/19 03:44 Dose: 75 mls/hr Sodium Chloride (Normal Saline -) 250 mls @ 250 mls/hr IV ASDIR STA Stop: 02/25/19 17:18 Ranitidine HCl (Zantac -) 150 mg PO BID [facility] Last Admin: 02/25/19 10:20 Dose: 150 mg Tamsulosin HCl (Flomax -) 0.4 mg PO BID [facility] Ambulatory Orders Ranitidine [Zantac -] 150 mg PO BID 06/03/16 Tamsulosin HCl [Flomax] 0.4 mg PO BID 06/03/16 Cyclobenzaprine HCl 5 mg PO TID 02/25/19 Lisinopril/Hydrochlorothiazide [Lisinopril-Hctz 20-25 mg Tab] 1 each PO DAILY Oxycodone HCl/Acetaminophen [Percocet 5-325 mg Tablet] 1 tab PO Q8H PRN IMAGING: -CXR: A single view of the chest reveals a semi-apical lordotic projection, clear lungs, prominent mediastinum and sharp angles. There is a slight scoliosis with degenerative changes. An acute process is not seen. -Head CT without contrast: No evidence of acute intracranial hemorrhage, edema, midline shift, mass effect, or skull fracture. There is no CT evidence of acute territorial infarction. -EKG: SINUS RHYTHM WITH 1ST DEGREE A-V BLOCK, LAFB, VR 72, QTc 438 ASSESSMENT/PLAN: 63 y/o M w/ PMHx HTN, herniated discs, EtOH abuse, remote polysubstance abuse, hepatitis C (s/p completion of treatment) presents after an episode of loss of consciousness #Syncopal episode -Unclear etiology in the setting of EtOH use with chronic Opiate Use; Less likely cardiac or neuro causes -Orthostatic vitals negative -Imaging noted above -Neurology (Dr. Sanchez) counsulted, appreciate rec's -Tele -Neurochecks Q2H -Seizure, Fall precautions -EEG -LR @ 75 mls/hr #EtOH abuse -CIWA currently 4 -Continue to monitor for signs of withdrawl -counselled again on EtOH cessation; Patient is not interested in going to AA meetings or Detox #Hyponatremia likely chronic 2/2 EtOH -Urine and Serum Osms reviewed -Continue to monitor #BPH -Home dose Tamsulosin #HTN--Currently normotensive -Hold home dose antihypertensives #FEN -LR@ 75 -Hyponatremia -Regular diet #PPx -DVT: SCDs Visit type - Emergency Visit Emergency Visit: Yes ED Registration Date: 02/25/19 Care time: The patient presented to the Emergency Department on the above date and was hospitalized for further evaluation of their emergent condition. - New Patient This patient is new to me today: Yes Date on this admission: 02/25/19 - Critical Care Critical Care patient: No - Discharge Referral Referred to [facility] Med P.C.: No
[2019-02-25] MEDS ORDERED: chlordiazePOXIDE 5 MG CAPSULE PO PRN (17:11)
[2019-02-25 19:22] VITALS: BP 108/74; PULSE 79
[2019-02-25] MEDS ORDERED: TAMSULOSIN HCL 0.4 MG CAP PO SCH (22:00)
[2019-02-26] MEDS ORDERED: SODIUM CHLORIDE 1,000 ML IV SCH (08:15)
--- NOTE | 2019-02-26 08:48 | DS ---
Physical Exam: SUBJECTIVE: Informed that patient left AMA Overnight. OBJECTIVE: Vital Signs Period Temp Pulse Resp BP Sys/Diaz Pulse Ox Last 24 Hr 97.2 F 74-79 18-24 102-108/68-74 98-99 PHYSICAL EXAM Unable to perform as patient left AMA overnight. LABS Laboratory Last Values WBC 6.3 K/mm3 (4.0-10.0) 02/25/19 05:55 RBC 4.07 M/mm3 (4.00-5.60) 02/25/19 05:55 Hgb 13.3 GM/dL (11.7-16.9) 02/25/19 05:55 Hct 38.6 % (35.4-49) 02/25/19 05:55 MCV 94.9 fl (80-96) 02/25/19 05:55 MCH 32.8 pg (25.7-33.7) 02/25/19 05:55 MCHC 34.6 g/dl (32.0-35.9) 02/25/19 05:55 RDW 13.1 % (11.9-15.9) 02/25/19 05:55 Plt Count 190 K/MM3 (134-434) 02/25/19 05:55 MPV 7.7 fl (7.5-11.1) 02/25/19 05:55 Absolute Neuts (auto) 3.4 K/mm3 (1.5-8.0) 02/25/19 05:55 Neutrophils % 54.2 % (42.8-82.8) D 02/25/19 05:55 Lymphocytes % 29.8 % (8-40) D 02/25/19 05:55 Monocytes % 10.1 % (3.8-10.2) 02/25/19 05:55 Eosinophils % 5.0 % (0-4.5) H 02/25/19 05:55 Basophils % 0.9 % (0-2.0) 02/25/19 05:55 Nucleated RBC % 0 % (0-0) 02/25/19 05:55 Sodium 130 mmol/L (136-145) L 02/25/19 05:55 Potassium 4.1 mmol/L (3.5-5.1) 02/25/19 05:55 Chloride 100 mmol/L (98-107) 02/25/19 05:55 Carbon Dioxide 24 mmol/L (21-32) 02/25/19 05:55 Anion Gap 6 MMOL/L (8-16) L 02/25/19 05:55 BUN 10 mg/dL (7-18) 02/25/19 05:55 Creatinine 0.9 mg/dL (0.55-1.3) 02/25/19 05:55 Creat Clearance w eGFR 85.79 (>60) 02/25/19 05:55 Random Glucose 112 mg/dL (74-106) H 02/25/19 05:55 Serum Osmolality 270 mosm/kg (278-305) L 02/25/19 05:55 Calcium 8.5 mg/dL (8.5-10.1) 02/25/19 05:55 Phosphorus 3.5 mg/dL (2.5-4.9) 02/25/19 05:55 Magnesium 2.2 mg/dL (1.8-2.4) 02/25/19 05:55 Total Bilirubin 0.4 mg/dL (0.2-1) 02/25/19 00:03 AST 23 U/L (15-37) 02/25/19 00:03 ALT 22 U/L (13-61) 02/25/19 00:03 Alkaline Phosphatase 52 U/L (45-117) 02/25/19 00:03 Creatine Kinase 110 U/L (26-308) 02/25/19 00:03 Troponin I < 0.02 ng/ml (0.00-0.05) 02/25/19 05:55 Total Protein 7.6 g/dl (6.4-8.2) 02/25/19 00:03 Albumin 3.8 g/dl (3.4-5.0) 02/25/19 00:03 Lipase 199 U/L (73-393) 02/25/19 00:03 Urine Osmolality 240 mosm/kg (300-900) L 02/25/19 06:17 Ur Random Sodium 38 MMOL/L (40-220) L 02/25/19 06:17 Urine Creatinine 52.0 mg/dL (20-320) 02/25/19 06:17 Alcohol, Quantitative 101.1 mg/dL (0.0-5.0) H 02/25/19 00:03 IMAGING: -CXR: A single view of the chest reveals a semi-apical lordotic projection, clear lungs, prominent mediastinum and sharp angles. There is a slight scoliosis with degenerative changes. An acute process is not seen. -Head CT without contrast: No evidence of acute intracranial hemorrhage, edema, midline shift, mass effect, or skull fracture. There is no CT evidence of acute territorial infarction. -EKG: SINUS RHYTHM WITH 1ST DEGREE A-V BLOCK, LAFB, VR 72, QTc 438 HOSPITAL COURSE: Date of Admission:02/25/19 Date of Discharge: 02/26/19 63 y/o M w/ PMHx HTN, herniated discs, EtOH abuse, remote polysubstance abuse, hepatitis C (s/p completion of treatment) presents after an episode of loss of consciousness. Imaging was done noted above. Orthostatic vital signs negative. Patient was hydrated with IVF. Neurology was consulted and recommended patient have an EEG done. Patient did not show signs of Active EtOH withdrawal during his hospital stay. Patient was additionally counselled on EtOH cessation however he did not want to attend AA/NA meetings nor did he want to enter into a detox program. I was informed this AM that patient left AMA overnight; Thus an EEG was not done. Minutes to complete discharge: 36 Discharge Summary Reason For Visit: HYPONATREMIA,SYNCOPE Condition: Improved - Instructions Diet, Activity, Other Instructions: You were admitted to the hospital because you had a syncopal episode. You were evaluated by neurologist. Follow up with the following physicians: 1. PCP in one week 2. Neurology--Dr. Sanchez in one week to follow up the results of your EEG PLEASE STOP USING ALCOHOL Please return to the ER if you have any signs or symptoms of chest pain, shortness of breath, uncontrollable fever, chills, nausea, vomiting, numbness, tingling, or weakness in any part of your body, changes in vision, slurred speech, changes in speech/gait, or dizziness. Please return to the ER if symptoms persist, worsen, or new symptoms arise. Referrals: Leonel Sanchez MD [Staff Physician] - Disposition: AGAINST MEDICAL ADVICE - Home Medications Comprehensive Discharge Medication List: Ambulatory Orders Ranitidine [Zantac -] 150 mg PO BID 06/03/16 Tamsulosin HCl [Flomax] 0.4 mg PO BID 06/03/16 Cyclobenzaprine HCl 5 mg PO TID 02/25/19 Lisinopril/Hydrochlorothiazide [Lisinopril-Hctz 20-25 mg Tab] 1 each PO DAILY Oxycodone HCl/Acetaminophen [Percocet 5-325 mg Tablet] 1 tab PO Q8H PRN This patient is new to me today: No Emergency Visit: Yes ED Registration Date: 02/25/19 Care time: The patient presented to the Emergency Department on the above date and was hospitalized for further evaluation of their emergent condition. Critical Care patient: No - Discharge Referral Referred to [facility] Med P.C.: No
[2019-02-26] MEDS ORDERED: ENOXAPARIN NA (PORCINE) 40 MG/0.4 ML DISP.SYRIN SQ SCH (10:00)
== END 2019-02-25 20:26 | disposition left against medical advice (07) ==
LOC: JER 23:01 → JERBED 02-25 00:47
PROVIDERS: ADMIT Internal Medicine; ATTEND Internal Medicine
PROC: 3E033GC Introduction of Other Therapeutic Substance into Peripheral Vein, Percutaneous Approach (ICD-10-PCS; principal; 2019-02-25)
PROC: 3E0337Z Introduction of Electrolytic and Water Balance Substance into Peripheral Vein, Percutaneous Approach (ICD-10-PCS; 2019-02-25)
DX: R55 Syncope and collapse (principal); E87.1 Hypo-osmolality and hyponatremia; I10 Essential (primary) hypertension; B18.2 Chronic viral hepatitis C; F10.10 Alcohol abuse, uncomplicated; F17.210 Nicotine dependence, cigarettes, uncomplicated; M54.5 Low back pain; G89.29 Other chronic pain; N40.0 Benign prostatic hyperplasia without lower urinary tract symptoms
CPT/HCPCS: 36415; 70450-TC; 71045-TC-FY; 80048; 80053; 80307; 82540; 82550; 82570; 83690; 83735; 83930; 83935; 84100; 84300; 84484; 85025; 93005; 93010; 96361; 96365; 99284-25; G0378

== ENCOUNTER 2022-09-12 10:11 | Inpatient (IN) | payer MEDICARE, OTHER ==
[2022-09-12] MEDS ORDERED: SODIUM CHLORIDE 0.9% 500 ML INFUS.BAG IV ONE (10:38)
[2022-09-12 10:48] VITALS: BMI 24.3
[2022-09-12] MEDS ORDERED: ONDANSETRON 4 MG/2 ML VIAL IVPUSH ONE (10:53)
[2022-09-12] MEDS ORDERED: ACETAMINOPHEN INJECTION 100 ML IVPB ONE ×2 (11:07→21:07)
[2022-09-12] MEDS ORDERED: ONDANSETRON 4 MG/2 ML VIAL ONE (11:07)
[2022-09-12] MEDS ORDERED: ACETAMINOPHEN 1000 MG/100 ML BAG IVPB ONE ×2 (11:11→20:35)
[2022-09-12 11:36] LABS: CHLORIDE 79 mmol/L (98-107); SODIUM 122 mmol/L (136-145)
[2022-09-12 11:38] LABS: EPI CELLS 1 /uL (0-25.1); HYALINE CASTS 0 /uL (0-3.1); PH,URINE 8.5 (5.0-8.0); URINE APPEARANCE CLEAR; URINE BACTERIA 0 /uL (0-1359); URINE BILIRUBIN NEGATIVE (NEGATIVE); URINE COLOR YELLOW; URINE GLUCOSE (UA) NEGATIVE (NEGATIVE); URINE KETONE NEGATIVE (NEGATIVE); URINE LEUK ESTERASE TRACE (NEGATIVE); URINE NITRITE NEGATIVE (NEGATIVE); URINE PROTEIN NEGATIVE (NEGATIVE); URINE RBC 8 /uL (0-23.9); URINE WBC 10 /uL (0-25.8)
[2022-09-12 11:38] LABS: ANION GAP 11 MMOL/L (8-16); BLOOD UREA NITROGEN 8.8 mg/dL (7-18); CALCIUM 9.3 mg/dL (8.5-10.1); CO2 33 mmol/L (21-32)
[2022-09-12 11:39] LABS: ALBUMIN 3.5 g/dl (3.4-5.0); GLUCOSE,RANDOM 81 mg/dL (74-106)
[2022-09-12 11:41] LABS: CREATININE 1.1 mg/dL (0.55-1.3); SGOT/AST 199 U/L (15-37); SGPT/ALT 81 U/L (13-61)
[2022-09-12 11:43] LABS: BILIRUBIN,TOTAL 1.3 mg/dL (0.2-1); TOT PROT 7.3 g/dl (6.4-8.2)
[2022-09-12 11:44] LABS: ALK PHOS 59 U/L (45-117)
[2022-09-12 12:13] LABS: LIPASE 164 U/L (73-393)
[2022-09-12] MEDS ORDERED: POTASSIUM CHLORIDE TABS 20 MEQ TABLET.ER (FP) PO ONE (12:56)
[2022-09-12 13:12] LABS: BASO % 1.4 % (0-2.0); EOS % 0.2 % (0-4.5); HEMATOCRIT 33.2 % (35.4-49); HEMOGLOBIN 12.2 GM/dL (11.7-16.9); MCH 32.2 pg (25.7-33.7); MCHC 36.7 g/dl (32.0-35.9); MEAN CELL VOLUME 87.7 fl (80-96); MEAN PLT VOLUME 8.4 fl (7.5-11.1); MONO % 5.9 % (3.8-10.2); NEUT % 87.5 % (42.8-82.8); PLATELET COUNT 242 10^3/uL (134-434); RBC 3.78 M/mm3 (4.00-5.60); RDW 14.8 % (11.9-15.9); WHITE BLOOD COUNT 4.7 K/mm3 (4.0-10.0)
[2022-09-12] MEDS ORDERED: POTASSIUM CHLORIDE ORAL LIQUID 20 MEQ/15 ML PO ONE (14:07)
[2022-09-12] MEDS ORDERED: POTASSIUM CHLORIDE ORAL LIQUID 20 MEQ/15 ML ONE (14:11)
[2022-09-12] MEDS ORDERED: MAGNESIUM CITRATE 300 ML BOTTLE PO ONE (15:10)
[2022-09-12] MEDS ORDERED: MAGNESIUM HYDROX 2400MG/30ML ORAL SUSPENSION 30 ML CUP PO ONE (15:37)
[2022-09-12] MEDS ORDERED: MAGNESIUM HYDROX 2400MG/30ML ORAL SUSPENSION 30 ML CUP ONE (15:51)
[2022-09-12] MEDS ORDERED: D5-NS + 20 MEQ KCL - 20 MEQ/1,000 ML INFUS.BAG IV SCH (16:45)
[2022-09-12] MEDS ORDERED: LEVOTHYROXINE SODIUM 100 MCG 5 ML VIAL IVPUSH SCH (16:45)
[2022-09-12 21:17] LABS: BLOOD UREA NITROGEN 9.8 mg/dL (7-18); CALCIUM 8.4 mg/dL (8.5-10.1)
[2022-09-12 21:21] LABS: CREATININE 1.1 mg/dL (0.55-1.3)
[2022-09-12] MEDS ORDERED: CHLORHEXIDINE GLUCONATE 4% CLEANSER FOR DECOLONIZATION TP SCH (22:00)
[2022-09-12] MEDS ORDERED: ATORVASTATIN CA 40 MG TABLET (FP) PO SCH (22:00)
[2022-09-12] MEDS ORDERED: TAMSULOSIN HCL 0.4 MG CAP PO SCH (22:00)
[2022-09-12] MEDS ORDERED: MUPIROCIN 2% TOPICAL OINTMENT FOR DECOLONIZATION NS SCH (22:00)
[2022-09-12] MEDS ORDERED: TAMSULOSIN HCL 0.4 MG CAP ONE (22:57)
[2022-09-12] MEDS ORDERED: ATORVASTATIN CA 40 MG TABLET (FP) ONE (22:57)
[2022-09-12] MEDS ORDERED: KCL 10 MEQ IVPB 10 MEQ/100 ML INFUS.BAG IVPB ONE (23:35)
[2022-09-12] MEDS ORDERED: HYDROCORTISONE SOD SUCCINATE 100 MG/2 ML VIAL ONE (23:35)
[2022-09-12] MEDS: HYDROCORTISONE SOD SUCCINATE 100 MG/2 ML VIAL IVPB SCH (23:49)
[2022-09-13] MEDS ORDERED: oxyCODONE HCL 5 MG TABLET PO PRN (00:17)
[2022-09-13] MEDS: KCL 10 MEQ IVPB 10 MEQ/100 ML INFUS.BAG IVPB SCH ×2 (01:05→02:50)
[2022-09-13 02:18] VITALS: BP 98/68; PULSE 61; RESP 20; TEMP 98.3
[2022-09-13] MEDS ORDERED: KCL 10 MEQ IVPB 10 MEQ/100 ML INFUS.BAG IVPB ONE (02:47)
[2022-09-13] MEDS ORDERED: HYDROCORTISONE SOD SUCCINATE 100 MG/2 ML VIAL ONE (06:12)
[2022-09-13] MEDS: HYDROCORTISONE SOD SUCCINATE 100 MG/2 ML VIAL IVPB SCH (06:25)
[2022-09-13] MEDS ORDERED: LIOTHYRONINE SODIUM 5 MCG TABLET PO SCH (07:00)
[2022-09-13 07:55] LABS: HEMATOCRIT 31.5 % (35.4-49); HEMOGLOBIN 11.3 GM/dL (11.7-16.9); MCH 31.2 pg (25.7-33.7); MCHC 35.9 g/dl (32.0-35.9); MEAN PLT VOLUME 8.5 fl (7.5-11.1); PLATELET COUNT 297 10^3/uL (134-434); RBC 3.62 M/mm3 (4.00-5.60); RDW 14.7 % (11.9-15.9); WHITE BLOOD COUNT 5.3 K/mm3 (4.0-10.0)
[2022-09-13 08:12] LABS: ALBUMIN 3.2 g/dl (3.4-5.0); CALCIUM 8.2 mg/dL (8.5-10.1); MAGNESIUM 1.6 mg/dL (1.8-2.4)
[2022-09-13 08:15] LABS: CREATININE 1.1 mg/dL (0.55-1.3); PHOSPHOROUS 2.9 mg/dL (2.5-4.9)
[2022-09-13 08:16] LABS: TOT PROT 6.4 g/dl (6.4-8.2)
[2022-09-13] MEDS ORDERED: PANTOPRAZOLE 20 MG TABLET PO SCH (10:00)
[2022-09-13] MEDS ORDERED: PARoxetine HCL 20 MG TABLET PO SCH (10:00)
[2022-09-13] MEDS ORDERED: ENOXAPARIN NA (PORCINE) 40 MG/0.4 ML DISP.SYRIN SQ SCH (10:00)
== END 2022-09-13 09:25 | disposition left against medical advice (07) | DRG 643 ==
LOC: JER 10:11 → JERBED 15:12
PROVIDERS: ADMIT Family Medicine; ATTEND Family Medicine
DX: E89.0 Postprocedural hypothyroidism (principal); U07.1 COVID-19; E87.1 Hypo-osmolality and hyponatremia; J90 Pleural effusion, not elsewhere classified; R18.8 Other ascites; N17.9 Acute kidney failure, unspecified; E78.5 Hyperlipidemia, unspecified; N40.0 Benign prostatic hyperplasia without lower urinary tract symptoms; I10 Essential (primary) hypertension; C32.9 Malignant neoplasm of larynx, unspecified; C73 Malignant neoplasm of thyroid gland; E87.6 Hypokalemia; J44.9 Chronic obstructive pulmonary disease, unspecified; K59.00 Constipation, unspecified; B19.20 Unspecified viral hepatitis C without hepatic coma; N28.1 Cyst of kidney, acquired; I07.1 Rheumatic tricuspid insufficiency; K76.0 Fatty (change of) liver, not elsewhere classified; K80.80 Other cholelithiasis without obstruction; Z93.0 Tracheostomy status
CPT/HCPCS: 0241U-QW; 36415; 71045-TC-FY; 74177-TC; 80048; 80053; 80061; 80307; 81003; 82436; 82570; 82962; 83605; 83690; 83735; 84100; 84156; 84300; 84436; 84439; 84443; 84481; 84484; 85025; 85027; 87086; 93005; 93010; 99285-25; Q9967

== ENCOUNTER 2022-11-19 02:16 | Inpatient (IN) | payer MEDICARE, OTHER ==
[2022-11-19 02:52] VITALS: BMI 25.9
[2022-11-19] MEDS ORDERED: BENZOCAINE/MENTHOL (CHLORASEPTIC ) LOZENGE MM PRN (03:44)
[2022-11-19] MEDS ORDERED: ONDANSETRON *ODT* 4 MG TABLET SL PRN (03:44)
[2022-11-19] MEDS ORDERED: IBUPROFEN 400 MG TABLET (FP) PO PRN (03:44)
[2022-11-19] MEDS ORDERED: LOPERAMIDE HCL 2 MG CAPSULE PO PRN (03:44)
[2022-11-19] MEDS ORDERED: IBUPROFEN 600 MG TABLET (FP) PO PRN (03:44)
[2022-11-19] MEDS ORDERED: MAGNESIUM HYDROX 2400MG/30ML ORAL SUSPENSION 30 ML CUP PO PRN (03:44)
[2022-11-19] MEDS ORDERED: METHOCARBAMOL 500 MG TABLET PO PRN (03:44)
[2022-11-19] MEDS ORDERED: hydrOXYzine PAMOATE 25 MG CAPSULE (FP) PO PRN (03:44)
[2022-11-19] MEDS ORDERED: NALOXONE HCL (KLOXXADO) 8 MG SPRAY NS PRN (03:44)
[2022-11-19] MEDS ORDERED: BISMUTH SUBSALICYLATE 524 MG/30 ML PO PRN (03:44)
[2022-11-19] MEDS ORDERED: DICYCLOMINE HCL 10 MG CAPSULE PO PRN (03:44)
[2022-11-19] MEDS ORDERED: POLYETHYLENE GLYCOL (HEALTHYLAX) 3350 17 GM PACKET PO PRN (03:44)
[2022-11-19] MEDS ORDERED: MAG HYDROX/AL HYDROX/SIMETH 30 ML UNIT-DOSE CUP PO PRN (03:44)
[2022-11-19] MEDS ORDERED: ACETAMINOPHEN 325 MG TABLET (FP) PO PRN ×2 (03:44)
[2022-11-19] MEDS ORDERED: cloNIDine HCL 0.1 MG TABLET PO ONE (03:48)
[2022-11-19] MEDS ORDERED: AMOX TR/POT CLAV 875MG/125MG TABLETS (FP) PO SCH (08:00)
[2022-11-19] MEDS ORDERED: chlordiazePOXIDE HCL 25 MG CAPSULE PO PRN (09:54)
[2022-11-19] MEDS ORDERED: methaDONE HCL 10 MG TABLET (FOR DETOX USE ONLY) PO ONE (09:54)
[2022-11-19] MEDS ORDERED: cloNIDine HCL 0.1 MG TABLET PO PRN (09:54)
[2022-11-19] MEDS ORDERED: PRENATAL VITAMINS W/ FOLIC ACID TABLET (FP) PO SCH (10:00)
[2022-11-19] MEDS ORDERED: chlordiazePOXIDE HCL 25 MG CAPSULE ONE (10:12)
[2022-11-19] MEDS ORDERED: methaDONE HCL 10 MG TABLET (FOR DETOX USE ONLY) ONE (10:13)
[2022-11-19] MEDS ORDERED: chlordiazePOXIDE HCL 25 MG CAPSULE PO SCH (11:00)
[2022-11-19 14:13] VITALS: BP 146/102; PULSE 86; RESP 16; TEMP 97.1
[2022-11-19] MEDS ORDERED: MELATONIN 5 MG TABLETS PO SCH (22:00)
[2022-11-19] MEDS ORDERED: THIAMINE HCL 100 MG TABLET (FP) PO SCH (22:00)
[2022-11-21] MEDS ORDERED: chlordiazePOXIDE HCL 25 MG CAPSULE PO SCH (05:00)
[2022-11-21] MEDS ORDERED: methaDONE HCL 10 MG TABLET (FOR DETOX USE ONLY) PO ONE (10:00)
[2022-11-22] MEDS ORDERED: chlordiazePOXIDE HCL 10 MG CAPSULE PO PRN
[2022-11-22] MEDS ORDERED: chlordiazePOXIDE HCL 10 MG CAPSULE PO SCH (05:00)
[2022-11-23] MEDS ORDERED: chlordiazePOXIDE HCL 10 MG CAPSULE PO SCH (05:00)
[2022-11-23] MEDS ORDERED: methaDONE HCL 10 MG TABLET (FOR DETOX USE ONLY) PO ONE (10:00)
[2022-11-24] MEDS ORDERED: chlordiazePOXIDE HCL 10 MG CAPSULE PO ONE (05:00)
== END 2022-11-20 08:10 | disposition home or self-care (01) | DRG 897 ==
LOC: YASAS 02:16 → Y3N 06:24 → Y6N 07:13
PROVIDERS: ADMIT Allergy & Immunology; ATTEND Allergy & Immunology
PROC: HZ2ZZZZ Detoxification Services for Substance Abuse Treatment (ICD-10-PCS; principal; 2022-11-19)
DX: F11.23 Opioid dependence with withdrawal (principal); L03.221 Cellulitis of neck; F10.230 Alcohol dependence with withdrawal, uncomplicated; F32.A Depression, unspecified; E89.0 Postprocedural hypothyroidism; I10 Essential (primary) hypertension; J44.9 Chronic obstructive pulmonary disease, unspecified; E78.5 Hyperlipidemia, unspecified; Z85.21 Personal history of malignant neoplasm of larynx; Z90.02 Acquired absence of larynx; Z93.0 Tracheostomy status; Z87.891 Personal history of nicotine dependence; Z99.89 Dependence on other enabling machines and devices
CPT/HCPCS: C9803-CS; U0003; U0005

== ENCOUNTER 2022-11-19 04:46 | Emergency (ER) | payer MEDICARE, OTHER ==
[2022-11-19 04:59] VITALS: BP 138/95; PULSE 74; RESP 18; TEMP 97.8; BMI 25.9
== END 2022-11-19 06:02 | disposition home or self-care (01) ==
LOC: JER 04:46
DX: F10.10 Alcohol abuse, uncomplicated (principal); F11.10 Opioid abuse, uncomplicated
CPT/HCPCS: 99283-25

== ENCOUNTER 2022-11-19 11:16 | Emergency (ER) | payer MEDICARE, OTHER ==
[2022-11-19 11:24] VITALS: RESP 20; TEMP 98.7; BMI 25.9
[2022-11-19 13:40] VITALS: BP 120/77; PULSE 76
== END 2022-11-19 13:43 | disposition home or self-care (01) ==
LOC: JER 11:16
DX: F10.90 Alcohol use, unspecified, uncomplicated (principal); F11.10 Opioid abuse, uncomplicated

== ENCOUNTER 2022-12-13 12:06 | Inpatient (IN) | payer MEDICARE, OTHER ==
[2022-12-13 13:14] VITALS: BMI 25.8
[2022-12-13] MEDS ORDERED: POLYETHYLENE GLYCOL (HEALTHYLAX) 3350 17 GM PACKET PO PRN (13:36)
[2022-12-13] MEDS ORDERED: MAG HYDROX/AL HYDROX/SIMETH 30 ML UNIT-DOSE CUP PO PRN (13:36)
[2022-12-13] MEDS ORDERED: ONDANSETRON *ODT* 4 MG TABLET SL PRN (13:36)
[2022-12-13] MEDS ORDERED: IBUPROFEN 400 MG TABLET (FP) PO PRN (13:36)
[2022-12-13] MEDS ORDERED: BENZOCAINE/MENTHOL (CHLORASEPTIC ) LOZENGE MM PRN (13:36)
[2022-12-13] MEDS ORDERED: MAGNESIUM HYDROX 2400MG/30ML ORAL SUSPENSION 30 ML CUP PO PRN (13:36)
[2022-12-13] MEDS ORDERED: methaDONE HCL 10 MG TABLET (FOR DETOX USE ONLY) PO ONE (13:36)
[2022-12-13] MEDS ORDERED: NALOXONE HCL (KLOXXADO) 8 MG SPRAY NS PRN (13:36)
[2022-12-13] MEDS ORDERED: hydrOXYzine PAMOATE 25 MG CAPSULE (FP) PO PRN (13:36)
[2022-12-13] MEDS ORDERED: LOPERAMIDE HCL 2 MG CAPSULE PO PRN (13:36)
[2022-12-13] MEDS ORDERED: IBUPROFEN 600 MG TABLET (FP) PO PRN (13:36)
[2022-12-13] MEDS ORDERED: BISMUTH SUBSALICYLATE 262 MG/15 ML BTL PO PRN (13:36)
[2022-12-13] MEDS ORDERED: ACETAMINOPHEN 325 MG TABLET (FP) PO PRN ×2 (13:36)
[2022-12-13] MEDS ORDERED: DICYCLOMINE HCL 10 MG CAPSULE PO PRN (13:36)
[2022-12-13] MEDS ORDERED: NICOTINE 10 MG CARTRIDGE (INHALER) IH PRN (13:36)
[2022-12-13] MEDS ORDERED: METHOCARBAMOL 500 MG TABLET PO PRN (13:36)
[2022-12-13] MEDS ORDERED: PATIENT'S OWN MEDICATION (NON-FORMULARY) (Lisinopril/Hydrochlorothiazide [Lisinopril-Hctz PO SCH (14:15)
[2022-12-13] MEDS: PRENATAL VITAMINS W/ FOLIC ACID TABLET (FP) PO SCH (15:00)
[2022-12-13] MEDS: LISINOPRIL 20 MG TABLET PO SCH (15:00)
[2022-12-13] MEDS: HYDROCHLOROTHIAZIDE 25 MG TABLET (FP) PO SCH (15:00)
[2022-12-13] MEDS ORDERED: methaDONE HCL 10 MG TABLET (FOR DETOX USE ONLY) ONE (15:55)
[2022-12-13] MEDS ORDERED: LISINOPRIL 10 MG TABLET ONE (15:55)
[2022-12-13] MEDS ORDERED: HYDROCHLOROTHIAZIDE 12.5 MG CAPSULE (FP) ONE (15:55)
[2022-12-13] MEDS: PANTOPRAZOLE 40 MG TABLET PO SCH (17:01)
[2022-12-13 17:24] LABS: HEMATOCRIT 26.1 % (35.4-49); HEMOGLOBIN 9.4 GM/dL (11.7-16.9); MCH 35.7 pg (25.7-33.7); MCHC 35.9 g/dl (32.0-35.9); MEAN CELL VOLUME 99.5 fl (80-96); MEAN PLT VOLUME 9.1 fl (7.5-11.1); PLATELET COUNT 236 10^3/uL (134-434); RBC 2.63 M/mm3 (4.00-5.60); RDW 15.5 % (11.9-15.9); WHITE BLOOD COUNT 3.9 K/mm3 (4.0-10.0)
[2022-12-13] MEDS: TAMSULOSIN HCL 0.4 MG CAP PO SCH (17:25)
[2022-12-13] MEDS ORDERED: ACETAMINOPHEN 650 MG/20.3 ML ORAL SOLUTION (CUPS) PO PRN ×2 (17:37)
[2022-12-13] MEDS: MELATONIN 5 MG TABLETS PO SCH (22:45)
[2022-12-13] MEDS: ATORVASTATIN CA 40 MG TABLET (FP) PO SCH (22:45)
[2022-12-13] MEDS: THIAMINE HCL 100 MG TABLET (FP) PO SCH (22:45)
[2022-12-14 00:01] LABS: ALBUMIN 3.8 g/dl (3.4-5.0); BLOOD UREA NITROGEN 8.7 mg/dL (7-18)
[2022-12-14 00:06] LABS: BILIRUBIN,TOTAL 0.4 mg/dL (0.2-1); TOT PROT 7.6 g/dl (6.4-8.2)
[2022-12-14] MEDS: TAMSULOSIN HCL 0.4 MG CAP PO SCH (07:50)
[2022-12-14] MEDS: PANTOPRAZOLE 40 MG TABLET PO SCH (10:23)
[2022-12-14] MEDS: LISINOPRIL 20 MG TABLET PO SCH (10:24)
[2022-12-14] MEDS: HYDROCHLOROTHIAZIDE 25 MG TABLET (FP) PO SCH (10:24)
[2022-12-14] MEDS: PRENATAL VITAMINS W/ FOLIC ACID TABLET (FP) PO SCH (10:24)
[2022-12-14] MEDS: ATORVASTATIN CA 40 MG TABLET (FP) PO SCH (22:11)
[2022-12-14] MEDS: THIAMINE HCL 100 MG TABLET (FP) PO SCH (22:11)
[2022-12-14] MEDS: MELATONIN 5 MG TABLETS PO SCH (22:14)
[2022-12-15] MEDS: TAMSULOSIN HCL 0.4 MG CAP PO SCH (07:39)
[2022-12-15] MEDS: PANTOPRAZOLE 40 MG TABLET PO SCH (09:51)
[2022-12-15] MEDS: HYDROCHLOROTHIAZIDE 25 MG TABLET (FP) PO SCH (09:53)
[2022-12-15] MEDS: LISINOPRIL 20 MG TABLET PO SCH (09:54)
[2022-12-15] MEDS: PRENATAL VITAMINS W/ FOLIC ACID TABLET (FP) PO SCH (09:54)
[2022-12-15] MEDS ORDERED: methaDONE HCL 10 MG TABLET (FOR DETOX USE ONLY) PO ONE (10:00)
[2022-12-15] MEDS ORDERED: ALBUTEROL SO4 HFA INHALER IH PRN (10:05)
[2022-12-15] MEDS: PANTOPRAZOLE 20 MG TABLET PO SCH (10:47)
[2022-12-15] MEDS: PARoxetine HCL 20 MG TABLET PO SCH (15:30)
[2022-12-15 17:50] LABS: PH,URINE 5.5 (5.0-8.0); URINE APPEARANCE CLEAR; URINE BILIRUBIN NEGATIVE (NEGATIVE); URINE COLOR YELLOW; URINE GLUCOSE (UA) NEGATIVE (NEGATIVE); URINE KETONE NEGATIVE (NEGATIVE); URINE LEUK ESTERASE NEGATIVE (NEGATIVE); URINE NITRITE NEGATIVE (NEGATIVE); URINE PROTEIN NEGATIVE (NEGATIVE)
[2022-12-15] MEDS: THIAMINE HCL 100 MG TABLET (FP) PO SCH (21:07)
[2022-12-15] MEDS: traZODone HCL 100 MG TABLET (FP) PO SCH (21:07)
[2022-12-15] MEDS: ATORVASTATIN CA 40 MG TABLET (FP) PO SCH (21:07)
[2022-12-16] MEDS: LEVOTHYROXINE NA 25 MCG TABLET (FP) PO SCH (06:14)
[2022-12-16] MEDS: TAMSULOSIN HCL 0.4 MG CAP PO SCH (07:41)
[2022-12-16] MEDS: PRENATAL VITAMINS W/ FOLIC ACID TABLET (FP) PO SCH (10:04)
[2022-12-16] MEDS: HYDROCHLOROTHIAZIDE 25 MG TABLET (FP) PO SCH (10:04)
[2022-12-16] MEDS: PANTOPRAZOLE 40 MG TABLET PO SCH (10:04)
[2022-12-16] MEDS: LISINOPRIL 20 MG TABLET PO SCH (10:04)
[2022-12-16] MEDS: PARoxetine HCL 20 MG TABLET PO SCH (10:07)
[2022-12-16] MEDS: PANTOPRAZOLE 20 MG TABLET PO SCH (11:36)
[2022-12-16] MEDS: THIAMINE HCL 100 MG TABLET (FP) PO SCH (22:01)
[2022-12-16] MEDS: ATORVASTATIN CA 40 MG TABLET (FP) PO SCH (22:01)
[2022-12-16] MEDS: traZODone HCL 100 MG TABLET (FP) PO SCH (22:01)
[2022-12-17] MEDS: LEVOTHYROXINE NA 25 MCG TABLET (FP) PO SCH (05:59)
[2022-12-17] MEDS: TAMSULOSIN HCL 0.4 MG CAP PO SCH (07:55)
[2022-12-17] MEDS ORDERED: methaDONE HCL 10 MG TABLET (FOR DETOX USE ONLY) PO ONE (10:00)
[2022-12-17] MEDS: LISINOPRIL 20 MG TABLET PO SCH (10:19)
[2022-12-17] MEDS: HYDROCHLOROTHIAZIDE 25 MG TABLET (FP) PO SCH (10:19)
[2022-12-17] MEDS: PANTOPRAZOLE 20 MG TABLET PO SCH (10:19)
[2022-12-17] MEDS: PRENATAL VITAMINS W/ FOLIC ACID TABLET (FP) PO SCH (10:19)
[2022-12-17] MEDS: PARoxetine HCL 20 MG TABLET PO SCH (10:19)
[2022-12-17] MEDS: traZODone HCL 100 MG TABLET (FP) PO SCH (22:18)
[2022-12-17] MEDS: ATORVASTATIN CA 40 MG TABLET (FP) PO SCH (22:19)
[2022-12-17] MEDS: THIAMINE HCL 100 MG TABLET (FP) PO SCH (22:19)
[2022-12-18] MEDS: LEVOTHYROXINE NA 25 MCG TABLET (FP) PO SCH (06:40)
[2022-12-18] MEDS: TAMSULOSIN HCL 0.4 MG CAP PO SCH (08:49)
[2022-12-18] MEDS: PRENATAL VITAMINS W/ FOLIC ACID TABLET (FP) PO SCH (10:30)
[2022-12-18] MEDS: LISINOPRIL 20 MG TABLET PO SCH (10:30)
[2022-12-18] MEDS: PARoxetine HCL 20 MG TABLET PO SCH (10:30)
[2022-12-18] MEDS: HYDROCHLOROTHIAZIDE 25 MG TABLET (FP) PO SCH (10:30)
[2022-12-18] MEDS: PANTOPRAZOLE 20 MG TABLET PO SCH (10:30)
[2022-12-18] MEDS: THIAMINE HCL 100 MG TABLET (FP) PO SCH (21:37)
[2022-12-18] MEDS: traZODone HCL 100 MG TABLET (FP) PO SCH (21:37)
[2022-12-18] MEDS: ATORVASTATIN CA 40 MG TABLET (FP) PO SCH (21:37)
[2022-12-19] MEDS: LEVOTHYROXINE NA 25 MCG TABLET (FP) PO SCH (06:24)
[2022-12-19 07:22] VITALS: TEMP 97.8
[2022-12-19] MEDS: TAMSULOSIN HCL 0.4 MG CAP PO SCH (09:30)
[2022-12-19 10:06] VITALS: BP 105/68; PULSE 75; RESP 15
[2022-12-19] MEDS: PARoxetine HCL 20 MG TABLET PO SCH (10:45)
[2022-12-19] MEDS: PRENATAL VITAMINS W/ FOLIC ACID TABLET (FP) PO SCH (10:45)
[2022-12-19] MEDS: PANTOPRAZOLE 20 MG TABLET PO SCH (10:45)
[2022-12-19] MEDS: HYDROCHLOROTHIAZIDE 25 MG TABLET (FP) PO SCH (10:45)
[2022-12-19] MEDS: LISINOPRIL 20 MG TABLET PO SCH (10:45)
[2022-12-20] MEDS ORDERED: MULTIVIT-MINERALS ORAL LIQUID PO SCH (10:00)
== END 2022-12-19 15:54 | disposition left against medical advice (07) | DRG 894 ==
LOC: YASAS 12:06 → Y6N 14:30 → Y3W 12-18 13:24 → Y5N 12-18 14:09 → Y3W 12-18 14:10
PROVIDERS: ADMIT Allergy & Immunology; ATTEND Psychiatry & Neurology Pain Medicine
PROC: HZ42ZZZ Group Counseling for Substance Abuse Treatment, Cognitive-Behavioral (ICD-10-PCS; principal; 2022-12-13)
DX: F11.20 Opioid dependence, uncomplicated (principal); F14.20 Cocaine dependence, uncomplicated; F19.282 Other psychoactive substance dependence with psychoactive substance-induced sleep disorder; F32.A Depression, unspecified; F41.9 Anxiety disorder, unspecified; E78.5 Hyperlipidemia, unspecified; I10 Essential (primary) hypertension; J44.9 Chronic obstructive pulmonary disease, unspecified; K21.9 Gastro-esophageal reflux disease without esophagitis; M25.472 Effusion, left ankle; N40.0 Benign prostatic hyperplasia without lower urinary tract symptoms; Z85.21 Personal history of malignant neoplasm of larynx; Z90.02 Acquired absence of larynx; Z87.891 Personal history of nicotine dependence; Z99.89 Dependence on other enabling machines and devices; Z86.19 Personal history of other infectious and parasitic diseases; Z93.0 Tracheostomy status
CPT/HCPCS: 36415; 73610-TC-LT-FY; 80053; 81003; 84443; 85027; 86780; C9803-CS; U0003; U0005

== ENCOUNTER 2023-01-01 20:00 | Emergency (ER) | payer OTHER ==
[2023-01-01 20:12] VITALS: BP 138/92; PULSE 64; RESP 22; TEMP 97.9; BMI 30.1
[2023-01-01] MEDS ORDERED: ONDANSETRON *ODT* 4 MG TABLET SL ONE (20:48)
[2023-01-01] MEDS ORDERED: MAG HYDROX/AL HYDROX/SIMETH -MYLANTA- ORAL SUSPENSION PO ONE (20:48)
[2023-01-01] MEDS ORDERED: FAMOTIDINE 20 MG TABLET PO ONE (20:48)
[2023-01-01] MEDS ORDERED: FOLIC ACID 1 MG TABLET (FP) PO ONE (20:50)
[2023-01-01] MEDS ORDERED: THIAMINE HCL 100 MG TABLET (FP) PO ONE (20:50)
[2023-01-01] MEDS ORDERED: THIAMINE HCL 100 MG TABLET (FP) ONE (21:14)
[2023-01-01] MEDS ORDERED: FAMOTIDINE 20 MG TABLET ONE (21:15)
[2023-01-01] MEDS ORDERED: MAG HYDROX/AL HYDROX/SIMETH 30 ML UNIT-DOSE CUP ONE (21:15)
[2023-01-01] MEDS ORDERED: FOLIC ACID 1 MG TABLET (FP) ONE (21:15)
[2023-01-01] MEDS ORDERED: ONDANSETRON *ODT* 4 MG TABLET ONE (21:15)
== END 2023-01-02 05:50 | disposition home or self-care (01) ==
LOC: JER 20:00
DX: F10.929 Alcohol use, unspecified with intoxication, unspecified (principal)
CPT/HCPCS: 70450-TC; 72125-TC; 82962; 99284-25; Q0162

== ENCOUNTER 2023-01-04 16:13 | Emergency (ER) | payer MEDICARE, OTHER ==
[2023-01-04 16:24] VITALS: BP 141/97; PULSE 77; RESP 18; BMI 22.2
== END 2023-01-04 18:16 | disposition home or self-care (01) ==
LOC: JER 16:13
DX: R07.9 Chest pain, unspecified (principal)
CPT/HCPCS: 93005; 93010; 99283-25

== ENCOUNTER 2023-01-08 06:39 | Emergency (ER) | payer OTHER ==
[2023-01-08 06:58] VITALS: BP 134/106; PULSE 76; RESP 20; TEMP 98.8; BMI 22.7
[2023-01-08] MEDS ORDERED: ACETAMINOPHEN 1000 MG/100 ML BAG IVPB ONE (07:41)
[2023-01-08] MEDS ORDERED: ACETAMINOPHEN INJECTION 100 ML IVPB ONE (08:08)
[2023-01-08 09:12] LABS: BASO % 1.2 % (0-2.0); EOS % 3.3 % (0-4.5); HEMATOCRIT 25.2 % (35.4-49); HEMOGLOBIN 9.1 GM/dL (11.7-16.9); LYMPH % 18.4 % (8-40); MCH 36.3 pg (25.7-33.7); MCHC 35.9 g/dl (32.0-35.9); MEAN CELL VOLUME 100.9 fl (80-96); MONO % 12.3 % (3.8-10.2); NEUT % 64.8 % (42.8-82.8); PLATELET COUNT 165 10^3/uL (134-434); RDW 14.4 % (11.9-15.9); WHITE BLOOD COUNT 3.6 K/mm3 (4.0-10.0)
[2023-01-08 09:31] LABS: ALBUMIN 3.7 g/dl (3.4-5.0); BLOOD UREA NITROGEN 20.1 mg/dL (7-18); CALCIUM 8.9 mg/dL (8.5-10.1)
[2023-01-08 09:36] LABS: BILIRUBIN,TOTAL 0.5 mg/dL (0.2-1); TOT PROT 7.6 g/dl (6.4-8.2)
[2023-01-08] MEDS ORDERED: FAMOTIDINE 20 MG/50 ML IVPB 20 MG/50 ML MG IVPB ONE ×2 (10:02→10:32)
[2023-01-08] MEDS ORDERED: MAG HYDROX/AL HYDROX/SIMETH 30 ML UNIT-DOSE CUP PO ONE (10:02)
[2023-01-08] MEDS ORDERED: MAG HYDROX/AL HYDROX/SIMETH 30 ML UNIT-DOSE CUP ONE (10:32)
[2023-01-08 10:41] LABS: URINE APPEARANCE CLEAR; URINE BILIRUBIN NEGATIVE (NEGATIVE); URINE COLOR YELLOW; URINE GLUCOSE (UA) NEGATIVE (NEGATIVE); URINE KETONE NEGATIVE (NEGATIVE); URINE LEUK ESTERASE NEGATIVE (NEGATIVE); URINE NITRITE NEGATIVE (NEGATIVE); URINE PROTEIN TRACE (NEGATIVE)
== END 2023-01-08 12:14 | disposition home or self-care (01) ==
LOC: JER 06:39
PROC: 3E033GC Introduction of Other Therapeutic Substance into Peripheral Vein, Percutaneous Approach (ICD-10-PCS; principal; 2023-01-08)
DX: R07.9 Chest pain, unspecified (principal); R10.13 Epigastric pain
CPT/HCPCS: 36415; 71045-TC-FY; 80053; 81003; 83690; 84484; 85025; 87086; 93005; 93010; 99285-25

== ENCOUNTER 2023-01-15 00:59 | Inpatient (IN) | payer MEDICARE, OTHER ==
[2023-01-15] MEDS ORDERED: ACETAMINOPHEN 325 MG TABLET (FP) PO PRN ×2 (01:13)
[2023-01-15] MEDS ORDERED: DICYCLOMINE HCL 10 MG CAPSULE PO PRN (01:13)
[2023-01-15] MEDS ORDERED: NICOTINE POLACRILEX 2 MG GUM BUC PRN (01:13)
[2023-01-15] MEDS ORDERED: LOPERAMIDE HCL 2 MG CAPSULE PO PRN (01:13)
[2023-01-15] MEDS ORDERED: BENZOCAINE/MENTHOL (CHLORASEPTIC ) LOZENGE MM PRN (01:13)
[2023-01-15] MEDS ORDERED: NALOXONE HCL (KLOXXADO) 8 MG SPRAY NS PRN (01:13)
[2023-01-15] MEDS ORDERED: IBUPROFEN 600 MG TABLET (FP) PO PRN (01:13)
[2023-01-15] MEDS ORDERED: POLYETHYLENE GLYCOL (HEALTHYLAX) 3350 17 GM PACKET PO PRN (01:13)
[2023-01-15] MEDS ORDERED: BISMUTH SUBSALICYLATE 524 MG/30 ML PO PRN (01:13)
[2023-01-15] MEDS ORDERED: ONDANSETRON *ODT* 4 MG TABLET SL PRN (01:13)
[2023-01-15] MEDS ORDERED: MAG HYDROX/AL HYDROX/SIMETH 30 ML UNIT-DOSE CUP PO PRN (01:13)
[2023-01-15] MEDS ORDERED: IBUPROFEN 400 MG TABLET (FP) PO PRN (01:13)
[2023-01-15] MEDS ORDERED: MAGNESIUM HYDROX 2400MG/30ML ORAL SUSPENSION 30 ML CUP PO PRN (01:13)
[2023-01-15 01:54] VITALS: BMI 24.1
[2023-01-15] MEDS: hydrOXYzine PAMOATE 25 MG CAPSULE (FP) PO PRN (02:41)
[2023-01-15] MEDS ORDERED: LORazepam 1 MG TABLET PO PRN (10:03)
[2023-01-15] MEDS ORDERED: methaDONE HCL 10 MG TABLET (FOR DETOX USE ONLY) PO ONE (10:03)
[2023-01-15] MEDS: PRENATAL VITAMINS W/ FOLIC ACID TABLET (FP) PO SCH (10:30)
[2023-01-15] MEDS: NICOTINE 14 MG/24 HOURS TOPICAL PATCH TD SCH (10:31)
[2023-01-15] MEDS ORDERED: LORazepam 2 MG TABLET PO SCH ×2 (17:00)
[2023-01-15] MEDS: MELATONIN 5 MG TABLETS PO SCH (22:12)
[2023-01-15] MEDS: THIAMINE HCL 100 MG TABLET (FP) PO SCH (22:12)
[2023-01-15] MEDS: LORazepam 1 MG TABLET PO SCH (22:12)
[2023-01-16] MEDS: LORazepam 1 MG TABLET PO SCH ×4 (05:51→23:46)
[2023-01-16] MEDS: PRENATAL VITAMINS W/ FOLIC ACID TABLET (FP) PO SCH (10:19)
[2023-01-16] MEDS: NICOTINE 14 MG/24 HOURS TOPICAL PATCH TD SCH (10:19)
[2023-01-16 12:23] LABS: HEMATOCRIT 27.4 % (35.4-49); HEMOGLOBIN 9.4 GM/dL (11.7-16.9); MCH 35.1 pg (25.7-33.7); MCHC 34.5 g/dl (32.0-35.9); MEAN CELL VOLUME 101.7 fl (80-96); MEAN PLT VOLUME 8.8 fl (7.5-11.1); PLATELET COUNT 247 10^3/uL (134-434); RBC 2.69 M/mm3 (4.00-5.60); WHITE BLOOD COUNT 3.5 K/mm3 (4.0-10.0)
[2023-01-16 13:38] LABS: CALCIUM 8.8 mg/dL (8.5-10.1)
[2023-01-16 13:39] LABS: ALBUMIN 3.8 g/dl (3.4-5.0); BLOOD UREA NITROGEN 16.6 mg/dL (7-18)
[2023-01-16 13:41] LABS: TOT PROT 7.6 g/dl (6.4-8.2)
[2023-01-16 13:44] LABS: BILIRUBIN,TOTAL 0.7 mg/dL (0.2-1)
[2023-01-16] MEDS: cloNIDine HCL 0.1 MG TABLET PO PRN ×2 (13:51→17:43)
[2023-01-16] MEDS: MELATONIN 5 MG TABLETS PO SCH (23:46)
[2023-01-16] MEDS: THIAMINE HCL 100 MG TABLET (FP) PO SCH (23:46)
[2023-01-17] MEDS: cloNIDine HCL 0.1 MG TABLET PO PRN (05:20)
[2023-01-17] MEDS: LORazepam 1 MG TABLET PO SCH ×2 (05:20→10:13)
[2023-01-17] MEDS: hydrOXYzine PAMOATE 25 MG CAPSULE (FP) PO PRN ×2 (05:20→10:13)
[2023-01-17 09:26] VITALS: TEMP 98.3
[2023-01-17] MEDS ORDERED: methaDONE HCL 10 MG TABLET (FOR DETOX USE ONLY) PO ONE (10:00)
[2023-01-17] MEDS: NICOTINE 14 MG/24 HOURS TOPICAL PATCH TD SCH (10:13)
[2023-01-17] MEDS: PRENATAL VITAMINS W/ FOLIC ACID TABLET (FP) PO SCH (10:13)
[2023-01-17 13:30] VITALS: BP 144/85; PULSE 80; RESP 16
[2023-01-17] MEDS ORDERED: ATORVASTATIN CA 40 MG TABLET (FP) PO SCH (22:00)
[2023-01-18] MEDS ORDERED: LORazepam 0.5 MG TABLET PO PRN
[2023-01-18] MEDS ORDERED: LORazepam 0.5 MG TABLET PO SCH (05:00)
[2023-01-18] MEDS ORDERED: LEVOTHYROXINE 112 MCG, LEVOTHYROXINE 25 MCG PO SCH (07:00)
[2023-01-18] MEDS ORDERED: PATIENT'S OWN MEDICATION (NON-FORMULARY) (Levothyroxine Sodium [Levothyroxine] 137 MCG Cap PO SCH (10:00)
[2023-01-19] MEDS ORDERED: LORazepam 0.5 MG TABLET PO ONE (05:00)
[2023-01-19] MEDS ORDERED: methaDONE HCL 10 MG TABLET (FOR DETOX USE ONLY) PO ONE (10:00)
== END 2023-01-17 03:10 | disposition left against medical advice (07) | DRG 894 ==
LOC: YASAS 00:59 → Y6N 02:02
PROVIDERS: ADMIT Allergy & Immunology; ATTEND Surgery
PROC: HZ2ZZZZ Detoxification Services for Substance Abuse Treatment (ICD-10-PCS; principal; 2023-01-15)
DX: F11.23 Opioid dependence with withdrawal (principal); F19.282 Other psychoactive substance dependence with psychoactive substance-induced sleep disorder; F10.230 Alcohol dependence with withdrawal, uncomplicated; D64.9 Anemia, unspecified; E78.5 Hyperlipidemia, unspecified; E03.9 Hypothyroidism, unspecified; K21.9 Gastro-esophageal reflux disease without esophagitis; J44.9 Chronic obstructive pulmonary disease, unspecified; M54.50 Low back pain, unspecified; G89.29 Other chronic pain; Z90.02 Acquired absence of larynx; Z93.0 Tracheostomy status; Z99.89 Dependence on other enabling machines and devices
CPT/HCPCS: 0241U-QW; 36415; 71046-TC-FY; 80053; 84484; 85025; 85027; 86780; 87811; 93005; 93010; 99282-25; C9803-CS; U0003; U0005

== ENCOUNTER 2023-01-24 05:09 | Inpatient (IN) | payer MEDICARE, OTHER ==
[2023-01-24 06:34] VITALS: BMI 25.9
[2023-01-24] MEDS ORDERED: BISMUTH SUBSALICYLATE 262 MG/15 ML BTL PO PRN (07:54)
[2023-01-24] MEDS ORDERED: MAG HYDROX/AL HYDROX/SIMETH 30 ML UNIT-DOSE CUP PO PRN (07:54)
[2023-01-24] MEDS ORDERED: ACETAMINOPHEN 325 MG TABLET (FP) PO PRN (07:54)
[2023-01-24] MEDS ORDERED: DICYCLOMINE HCL 10 MG CAPSULE PO PRN (07:54)
[2023-01-24] MEDS ORDERED: IBUPROFEN 600 MG TABLET (FP) PO PRN (07:54)
[2023-01-24] MEDS ORDERED: MAGNESIUM HYDROX 2400MG/30ML ORAL SUSPENSION 30 ML CUP PO PRN (07:54)
[2023-01-24] MEDS ORDERED: guaiFENesin 600 MG TABLET.ER (FP) PO PRN (07:54)
[2023-01-24] MEDS ORDERED: ONDANSETRON *ODT* 4 MG TABLET SL PRN (07:54)
[2023-01-24] MEDS ORDERED: hydrOXYzine PAMOATE 25 MG CAPSULE (FP) PO PRN (07:54)
[2023-01-24] MEDS ORDERED: COLLOIDAL OATMEAL 1 BAR EACH TP PRN (07:54)
[2023-01-24] MEDS ORDERED: POLYETHYLENE GLYCOL (HEALTHYLAX) 3350 17 GM PACKET PO PRN (07:54)
[2023-01-24] MEDS ORDERED: LORazepam 1 MG TABLET PO PRN (07:54)
[2023-01-24] MEDS ORDERED: AMMONIUM LACTATE 12% LOTION 225 GM BOTTLE TP PRN (07:54)
[2023-01-24] MEDS ORDERED: LORazepam 2 MG TABLET PO ONE (07:54)
[2023-01-24] MEDS ORDERED: NALOXONE HCL (KLOXXADO) 8 MG SPRAY NS PRN (07:54)
[2023-01-24] MEDS ORDERED: BENZOCAINE/MENTHOL (CHLORASEPTIC ) LOZENGE MM PRN (07:54)
[2023-01-24] MEDS ORDERED: NALOXONE HCL 0.4 MG/ML VIAL IM PRN (07:54)
[2023-01-24] MEDS ORDERED: BENZONATATE 200 MG CAPSULE PO PRN (07:54)
[2023-01-24] MEDS ORDERED: IBUPROFEN 400 MG TABLET (FP) PO PRN (07:54)
[2023-01-24] MEDS ORDERED: METHOCARBAMOL 500 MG TABLET PO PRN (07:54)
[2023-01-24] MEDS ORDERED: LOPERAMIDE HCL 2 MG CAPSULE PO PRN (07:54)
[2023-01-24] MEDS ORDERED: LISINOPRIL 20 MG TABLET PO ONE (08:13)
[2023-01-24] MEDS ORDERED: HYDROCHLOROTHIAZIDE 25 MG TABLET (FP) PO ONE (08:13)
[2023-01-24] MEDS ORDERED: LISINOPRIL 10 MG TABLET ONE (08:42)
[2023-01-24] MEDS ORDERED: LORazepam 2 MG TABLET ONE (08:42)
[2023-01-24] MEDS ORDERED: HYDROCHLOROTHIAZIDE 12.5 MG CAPSULE (FP) ONE (08:42)
[2023-01-24 10:38] LABS: HEMATOCRIT 27.9 % (35.4-49); HEMOGLOBIN 9.9 GM/dL (11.7-16.9); MCH 35.1 pg (25.7-33.7); MCHC 35.6 g/dl (32.0-35.9); MEAN CELL VOLUME 98.7 fl (80-96); MEAN PLT VOLUME 7.9 fl (7.5-11.1); PLATELET COUNT 248 10^3/uL (134-434); RBC 2.82 M/mm3 (4.00-5.60); RDW 15.2 % (11.9-15.9)
[2023-01-24] MEDS: TAMSULOSIN HCL 0.4 MG CAP PO SCH ×2 (11:02→22:22)
[2023-01-24] MEDS: PRENATAL VITAMINS W/ FOLIC ACID TABLET (FP) PO SCH (11:03)
[2023-01-24] MEDS: PANTOPRAZOLE 40 MG TABLET PO SCH (11:03)
[2023-01-24] MEDS: LORATADINE 10 MG TABLET PO SCH (11:03)
[2023-01-24] MEDS: LORazepam 2 MG TABLET PO SCH ×3 (11:04→23:06)
[2023-01-24 11:37] LABS: CALCIUM 9.3 mg/dL (8.5-10.1)
[2023-01-24 11:38] LABS: ALBUMIN 4.2 g/dl (3.4-5.0); BLOOD UREA NITROGEN 10.7 mg/dL (7-18)
[2023-01-24 11:43] LABS: TOT PROT 8.5 g/dl (6.4-8.2)
[2023-01-24 11:46] LABS: BILIRUBIN,TOTAL 0.5 mg/dL (0.2-1)
[2023-01-24] MEDS ORDERED: THIAMINE HCL 100 MG TABLET (FP) PO SCH (22:00)
[2023-01-24] MEDS ORDERED: traZODone HCL 50 MG TABLET (FP) PO SCH (22:00)
[2023-01-24] MEDS ORDERED: ATORVASTATIN CA 40 MG TABLET (FP) PO SCH (22:00)
[2023-01-24] MEDS ORDERED: MELATONIN 5 MG TABLETS PO SCH (22:00)
[2023-01-25] MEDS: LORazepam 2 MG TABLET PO SCH ×2 (05:39→10:38)
[2023-01-25] MEDS ORDERED: LEVOTHYROXINE 25 MCG, LEVOTHYROXINE 112 MCG PO SCH (07:00)
[2023-01-25] MEDS ORDERED: LEVOTHYROXINE NA 25 MCG TABLET (FP) PO SCH (07:00)
[2023-01-25 09:51] VITALS: RESP 18
[2023-01-25] MEDS ORDERED: PARoxetine HCL 20 MG TABLET PO SCH (10:00)
[2023-01-25] MEDS: TAMSULOSIN HCL 0.4 MG CAP PO SCH (10:38)
[2023-01-25] MEDS: PANTOPRAZOLE 40 MG TABLET PO SCH (10:39)
[2023-01-25] MEDS: PRENATAL VITAMINS W/ FOLIC ACID TABLET (FP) PO SCH (10:39)
[2023-01-25] MEDS: LORATADINE 10 MG TABLET PO SCH (10:39)
[2023-01-25 13:05] VITALS: BP 151/95; PULSE 92; TEMP 97.6
[2023-01-25 13:15] LABS: HEMATOCRIT 26.8 % (35.4-49); HEMOGLOBIN 9.3 GM/dL (11.7-16.9); MCH 35.7 pg (25.7-33.7); MCHC 34.7 g/dl (32.0-35.9); MEAN CELL VOLUME 102.6 fl (80-96); MEAN PLT VOLUME 9.5 fl (7.5-11.1); PLATELET COUNT 220 10^3/uL (134-434); RBC 2.61 M/mm3 (4.00-5.60); RDW 14.8 % (11.9-15.9); RETICULOCYTES 0.82 % (0.5-1.5)
[2023-01-25 13:26] LABS: BLOOD UREA NITROGEN 11.8 mg/dL (7-18); CALCIUM 8.5 mg/dL (8.5-10.1)
[2023-01-25 13:27] LABS: ALBUMIN 3.4 g/dl (3.4-5.0)
[2023-01-25 13:29] LABS: CREATININE 0.9 mg/dL (0.55-1.3)
[2023-01-26] MEDS ORDERED: LORazepam 1 MG TABLET PO SCH (05:00)
[2023-01-27] MEDS ORDERED: LORazepam 0.5 MG TABLET PO PRN
[2023-01-27] MEDS ORDERED: LORazepam 0.5 MG TABLET PO SCH (05:00)
[2023-01-28] MEDS ORDERED: LORazepam 0.5 MG TABLET PO ONE (05:00)
== END 2023-01-25 13:18 | disposition left against medical advice (07) | DRG 894 ==
LOC: YASAS 05:09 → Y6N 09:45
PROVIDERS: ADMIT Allergy & Immunology; ATTEND Surgery
PROC: HZ2ZZZZ Detoxification Services for Substance Abuse Treatment (ICD-10-PCS; principal; 2023-01-24)
DX: F10.230 Alcohol dependence with withdrawal, uncomplicated (principal); F19.282 Other psychoactive substance dependence with psychoactive substance-induced sleep disorder; F12.20 Cannabis dependence, uncomplicated; F19.24 Other psychoactive substance dependence with psychoactive substance-induced mood disorder; F41.9 Anxiety disorder, unspecified; D64.9 Anemia, unspecified; E78.5 Hyperlipidemia, unspecified; E08.9 Diabetes mellitus due to underlying condition without complications; I10 Essential (primary) hypertension; J44.9 Chronic obstructive pulmonary disease, unspecified; M19.90 Unspecified osteoarthritis, unspecified site; M54.50 Low back pain, unspecified; G89.29 Other chronic pain; N40.0 Benign prostatic hyperplasia without lower urinary tract symptoms; Z86.19 Personal history of other infectious and parasitic diseases; Z85.21 Personal history of malignant neoplasm of larynx; Z93.0 Tracheostomy status
CPT/HCPCS: 36415; 80053; 82140; 82607; 82746; 82947; 83540; 83550; 85027; 85045; 86780; C9803-CS; U0003; U0005

== ENCOUNTER 2023-02-02 20:51 | Inpatient (IN) | payer MEDICARE, OTHER ==
[2023-02-02 22:23] VITALS: BMI 24.3
[2023-02-02] MEDS ORDERED: NALOXONE HCL (KLOXXADO) 8 MG SPRAY NS PRN (23:01)
[2023-02-02] MEDS ORDERED: LOPERAMIDE HCL 2 MG CAPSULE PO PRN (23:01)
[2023-02-02] MEDS ORDERED: POLYETHYLENE GLYCOL (HEALTHYLAX) 3350 17 GM PACKET PO PRN (23:01)
[2023-02-02] MEDS ORDERED: DICYCLOMINE HCL 10 MG CAPSULE PO PRN (23:01)
[2023-02-02] MEDS ORDERED: ACETAMINOPHEN 325 MG TABLET (FP) PO PRN ×2 (23:01)
[2023-02-02] MEDS ORDERED: guaiFENesin 600 MG TABLET.ER (FP) PO PRN (23:01)
[2023-02-02] MEDS ORDERED: NALOXONE HCL 0.4 MG/ML VIAL IM PRN (23:01)
[2023-02-02] MEDS ORDERED: IBUPROFEN 400 MG TABLET (FP) PO PRN (23:01)
[2023-02-02] MEDS ORDERED: BENZOCAINE/MENTHOL (CHLORASEPTIC ) LOZENGE MM PRN (23:01)
[2023-02-02] MEDS ORDERED: ONDANSETRON *ODT* 4 MG TABLET SL PRN (23:01)
[2023-02-02] MEDS ORDERED: MELATONIN 5 MG TABLETS PO PRN (23:01)
[2023-02-02] MEDS ORDERED: IBUPROFEN 600 MG TABLET (FP) PO PRN (23:01)
[2023-02-02] MEDS ORDERED: hydrOXYzine PAMOATE 25 MG CAPSULE (FP) PO PRN (23:01)
[2023-02-02] MEDS ORDERED: MAG HYDROX/AL HYDROX/SIMETH 30 ML UNIT-DOSE CUP PO PRN (23:01)
[2023-02-02] MEDS ORDERED: P-EPHED 60MG/TRIPROLIDI 2.5MG TABLET PO PRN (23:01)
[2023-02-02] MEDS ORDERED: MAGNESIUM HYDROX 2400MG/30ML ORAL SUSPENSION 30 ML CUP PO PRN (23:01)
[2023-02-02] MEDS ORDERED: BENZONATATE 200 MG CAPSULE PO PRN (23:01)
[2023-02-02] MEDS ORDERED: BISMUTH SUBSALICYLATE 524 MG/30 ML PO PRN (23:01)
[2023-02-02] MEDS ORDERED: traZODone HCL 50 MG TABLET (FP) PO ONE (23:19)
[2023-02-03] MEDS ORDERED: IBUPROFEN 600 MG TABLET (FP) PO ONE (03:49)
[2023-02-03] MEDS ORDERED: hydrOXYzine PAMOATE 25 MG CAPSULE (FP) PO ONE (03:49)
[2023-02-03 05:55] VITALS: RESP 18
[2023-02-03] MEDS ORDERED: LEVOTHYROXINE NA 25 MCG TABLET (FP) PO SCH (07:00)
[2023-02-03] MEDS ORDERED: LIDOCAINE HCL 5% TOP OINTMENT 50 GM TUBE TP ONE (09:30)
[2023-02-03] MEDS ORDERED: LISINOPRIL 10 MG TABLET ONE (09:34)
[2023-02-03] MEDS ORDERED: HYDROCHLOROTHIAZIDE 12.5 MG CAPSULE (FP) ONE (09:34)
[2023-02-03] MEDS ORDERED: PRENATAL VITAMINS W/ FOLIC ACID TABLET (FP) PO ONE (09:34)
[2023-02-03] MEDS ORDERED: LISINOPRIL 20 MG TABLET PO SCH (10:00)
[2023-02-03] MEDS ORDERED: PATIENT'S OWN MEDICATION (NON-FORMULARY) (Lisinopril/Hydrochlorothiazide [Lisinopril-Hctz PO SCH (10:00)
[2023-02-03] MEDS ORDERED: LORATADINE 10 MG TABLET PO SCH (10:00)
[2023-02-03] MEDS ORDERED: FOLIC ACID 1 MG TABLET (FP) PO SCH (10:00)
[2023-02-03] MEDS ORDERED: PANTOPRAZOLE 40 MG TABLET PO SCH (10:00)
[2023-02-03] MEDS ORDERED: PRENATAL VITAMINS W/ FOLIC ACID TABLET (FP) PO SCH (10:00)
[2023-02-03] MEDS ORDERED: CELECOXIB 200 MG CAPSULE PO SCH (10:00)
[2023-02-03] MEDS ORDERED: HYDROCHLOROTHIAZIDE 25 MG TABLET (FP) PO SCH (10:00)
[2023-02-03] MEDS: TAMSULOSIN HCL 0.4 MG CAP PO SCH ×2 (10:16→10:29)
[2023-02-03] MEDS ORDERED: PARoxetine HCL 20 MG TABLET PO SCH (11:00)
[2023-02-03 11:13] VITALS: BP 134/85; PULSE 71
[2023-02-03] MEDS ORDERED: BACLOFEN 10 MG TABLET (FP) PO PRN (12:26)
[2023-02-03 15:57] VITALS: TEMP 98.1
[2023-02-03] MEDS ORDERED: traZODone HCL 100 MG TABLET (FP) PO SCH (22:00)
[2023-02-03] MEDS ORDERED: THIAMINE HCL 100 MG TABLET (FP) PO SCH (22:00)
[2023-02-03] MEDS ORDERED: ATORVASTATIN CA 40 MG TABLET (FP) PO SCH (22:00)
== END 2023-02-03 16:05 | disposition left against medical advice (07) | DRG 894 ==
LOC: YASAS 20:51 → Y5N 02-03 09:11
PROVIDERS: ADMIT Allergy & Immunology; ATTEND Allergy & Immunology
PROC: HZ42ZZZ Group Counseling for Substance Abuse Treatment, Cognitive-Behavioral (ICD-10-PCS; principal; 2023-02-03)
DX: F11.20 Opioid dependence, uncomplicated (principal); F19.282 Other psychoactive substance dependence with psychoactive substance-induced sleep disorder; F10.20 Alcohol dependence, uncomplicated; F12.20 Cannabis dependence, uncomplicated; I10 Essential (primary) hypertension; J44.9 Chronic obstructive pulmonary disease, unspecified; K21.9 Gastro-esophageal reflux disease without esophagitis; M17.0 Bilateral primary osteoarthritis of knee; N40.0 Benign prostatic hyperplasia without lower urinary tract symptoms; Z99.89 Dependence on other enabling machines and devices; Z86.11 Personal history of tuberculosis; Z86.19 Personal history of other infectious and parasitic diseases; Z87.891 Personal history of nicotine dependence; Z85.21 Personal history of malignant neoplasm of larynx; Z93.0 Tracheostomy status
CPT/HCPCS: 82140; 87811; C9803-CS; U0003; U0005

== ENCOUNTER 2023-03-30 08:10 | Inpatient (IN) | payer OTHER ==
[2023-03-30 09:15] VITALS: BMI 24.7
[2023-03-30] MEDS ORDERED: ONDANSETRON *ODT* 4 MG TABLET SL PRN (10:22)
[2023-03-30] MEDS ORDERED: MAGNESIUM HYDROX 2400MG/30ML ORAL SUSPENSION 30 ML CUP PO PRN (10:22)
[2023-03-30] MEDS ORDERED: NALOXONE HCL (KLOXXADO) 8 MG SPRAY NS PRN (10:22)
[2023-03-30] MEDS ORDERED: DICYCLOMINE HCL 10 MG CAPSULE PO PRN (10:22)
[2023-03-30] MEDS ORDERED: guaiFENesin 600 MG TABLET.ER (FP) PO PRN (10:22)
[2023-03-30] MEDS ORDERED: LOPERAMIDE HCL 2 MG CAPSULE PO PRN (10:22)
[2023-03-30] MEDS ORDERED: BENZONATATE 200 MG CAPSULE PO PRN (10:22)
[2023-03-30] MEDS ORDERED: MAG HYDROX/AL HYDROX/SIMETH 30 ML UNIT-DOSE CUP PO PRN (10:22)
[2023-03-30] MEDS ORDERED: BISMUTH SUBSALICYLATE 262 MG/15 ML BTL PO PRN (10:22)
[2023-03-30] MEDS ORDERED: POLYETHYLENE GLYCOL (HEALTHYLAX) 3350 17 GM PACKET PO PRN (10:22)
[2023-03-30] MEDS ORDERED: BENZOCAINE/MENTHOL (CHLORASEPTIC ) LOZENGE MM PRN (10:22)
[2023-03-30] MEDS ORDERED: IBUPROFEN 600 MG TABLET (FP) PO PRN (10:22)
[2023-03-30] MEDS ORDERED: IBUPROFEN 400 MG TABLET (FP) PO PRN (10:22)
[2023-03-30] MEDS ORDERED: NALOXONE HCL 0.4 MG/ML VIAL IM PRN (10:22)
[2023-03-30] MEDS ORDERED: AMMONIUM LACTATE 12% LOTION 225 GM BOTTLE TP PRN (10:22)
[2023-03-30] MEDS ORDERED: ACETAMINOPHEN 325 MG TABLET (FP) PO PRN (10:22)
[2023-03-30] MEDS ORDERED: COLLOIDAL OATMEAL 1 BAR EACH TP PRN (10:22)
[2023-03-30] MEDS ORDERED: PATIENT'S OWN MEDICATION (NON-FORMULARY) (Lisinopril/Hydrochlorothiazide [Lisinopril-Hctz PO SCH (10:45)
[2023-03-30] MEDS ORDERED: IBUPROFEN 600 MG TABLET (FP) PO ONE (10:58)
[2023-03-30] MEDS ORDERED: LORazepam 2 MG TABLET ONE (10:58)
[2023-03-30] MEDS: LORazepam 2 MG TABLET PO SCH ×3 (10:59→22:52)
[2023-03-30 18:18] LABS: HEMATOCRIT 30.1 % (35.4-49); HEMOGLOBIN 10.6 GM/dL (11.7-16.9); MCH 34.2 pg (25.7-33.7); MCHC 35.2 g/dl (32.0-35.9); MEAN PLT VOLUME 8.5 fl (7.5-11.1); PLATELET COUNT 249 10^3/uL (134-434)
[2023-03-30 18:40] LABS: ALBUMIN 3.5 g/dl (3.4-5.0); BLOOD UREA NITROGEN 16.8 mg/dL (7-18); CALCIUM 8.7 mg/dL (8.5-10.1)
[2023-03-30 18:43] LABS: CREATININE 1.1 mg/dL (0.55-1.3)
[2023-03-30 18:44] LABS: BILIRUBIN,TOTAL 0.4 mg/dL (0.2-1)
[2023-03-30 18:45] LABS: TOT PROT 7.4 g/dl (6.4-8.2)
[2023-03-30] MEDS ORDERED: ATORVASTATIN CA 40 MG TABLET (FP) PO SCH (22:00)
[2023-03-30] MEDS ORDERED: MELATONIN 5 MG TABLETS PO SCH (22:00)
[2023-03-30] MEDS ORDERED: THIAMINE HCL 100 MG TABLET (FP) PO SCH (22:00)
[2023-03-30] MEDS: TAMSULOSIN HCL 0.4 MG CAP PO SCH (22:51)
[2023-03-31] MEDS: LORazepam 2 MG TABLET PO SCH ×2 (05:31→10:44)
[2023-03-31] MEDS ORDERED: LEVOTHYROXINE 25 MCG, LEVOTHYROXINE 112 MCG PO SCH (07:00)
[2023-03-31] MEDS ORDERED: LEVOTHYROXINE NA 25 MCG TABLET (FP) PO SCH (07:00)
[2023-03-31 09:22] VITALS: RESP 18
[2023-03-31] MEDS ORDERED: HYDROCHLOROTHIAZIDE 25 MG TABLET (FP) PO SCH (10:00)
[2023-03-31] MEDS ORDERED: LISINOPRIL 20 MG TABLET PO SCH (10:00)
[2023-03-31] MEDS ORDERED: PANTOPRAZOLE 40 MG TABLET PO SCH (10:00)
[2023-03-31] MEDS ORDERED: POTASSIUM CHLORIDE ORAL LIQUID 20 MEQ/15 ML PO SCH (10:00)
[2023-03-31] MEDS ORDERED: PRENATAL VITAMINS W/ FOLIC ACID TABLET (FP) PO SCH (10:00)
[2023-03-31] MEDS ORDERED: LORATADINE 10 MG TABLET PO SCH (10:00)
[2023-03-31] MEDS: TAMSULOSIN HCL 0.4 MG CAP PO SCH (10:43)
[2023-03-31] MEDS: LACTULOSE 20 GM/30 ML UDC (FOR ORAL USE ONLY) PO SCH ×2 (10:43→13:52)
[2023-03-31 13:50] VITALS: BP 137/99; PULSE 99; TEMP 96.8
[2023-04-01] MEDS ORDERED: LORazepam 1 MG TABLET PO SCH (05:00)
[2023-04-02] MEDS ORDERED: LORazepam 0.5 MG TABLET PO SCH (05:00)
[2023-04-03] MEDS ORDERED: LORazepam 0.5 MG TABLET PO ONE (05:00)
== END 2023-03-31 16:55 | disposition left against medical advice (07) | DRG 894 ==
LOC: YASAS 08:10 → Y3N 10:30
PROVIDERS: ADMIT Allergy & Immunology; ATTEND Surgery
PROC: HZ2ZZZZ Detoxification Services for Substance Abuse Treatment (ICD-10-PCS; principal; 2023-03-30)
DX: F10.230 Alcohol dependence with withdrawal, uncomplicated (principal); F12.20 Cannabis dependence, uncomplicated; D64.9 Anemia, unspecified; E87.6 Hypokalemia; E03.9 Hypothyroidism, unspecified; F19.24 Other psychoactive substance dependence with psychoactive substance-induced mood disorder; I10 Essential (primary) hypertension; K21.9 Gastro-esophageal reflux disease without esophagitis; N40.0 Benign prostatic hyperplasia without lower urinary tract symptoms; R76.11 Nonspecific reaction to tuberculin skin test without active tuberculosis; M54.50 Low back pain, unspecified; G89.29 Other chronic pain; Z93.0 Tracheostomy status; Z85.819 Personal history of malignant neoplasm of unspecified site of lip, oral cavity, and pharynx; Z99.89 Dependence on other enabling machines and devices
CPT/HCPCS: 36415; 80053; 82140; 85027; 86780; 87811; 99281-25; C9803-CS; U0003; U0005

== ENCOUNTER 2023-04-03 21:59 | Inpatient (IN) | payer OTHER ==
[2023-04-04 01:16] LABS: HEMATOCRIT 33.4 % (35.4-49); HEMOGLOBIN 11.7 GM/dL (11.7-16.9); MEAN CELL VOLUME 97.2 fl (80-96); MEAN PLT VOLUME 7.7 fl (7.5-11.1); PLATELET COUNT 260 10^3/uL (134-434); RBC 3.44 M/mm3 (4.00-5.60); RDW 18.3 % (11.9-15.9); WHITE BLOOD COUNT 4.4 K/mm3 (4.0-10.0)
[2023-04-04 01:35] LABS: POTASSIUM 3.8 mmol/L (3.5-5.1)
[2023-04-04 01:38] LABS: ALBUMIN 3.3 g/dl (3.4-5.0); BLOOD UREA NITROGEN 11.2 mg/dL (7-18); CALCIUM 8.5 mg/dL (8.5-10.1); MAGNESIUM 1.9 mg/dL (1.8-2.4)
[2023-04-04 01:41] LABS: CREATININE 0.9 mg/dL (0.55-1.3)
[2023-04-04 01:43] LABS: BILIRUBIN,TOTAL 0.5 mg/dL (0.2-1); TOT PROT 7.4 g/dl (6.4-8.2)
[2023-04-04] MEDS ORDERED: AMPICILLIN NA/SULBACTAM NA 3 GM in SODIUM CHLORIDE 100 ML IVPB ONE (01:51)
[2023-04-04] MEDS ORDERED: CEFTRIAXONE 1 GM in DEXTROSE 5%-WATER - 50 ML IVPB ONE (01:53)
[2023-04-04] MEDS ORDERED: CLINDAMYCIN 600MG PREMIX IVPB 600 MG/50 ML BAG IVPB ONE (01:53)
[2023-04-04] MEDS ORDERED: CEFTRIAXONE 1 GM/50 ML BAG ONE (02:49)
[2023-04-04 03:05] LABS: ANISOCYTOSIS 1+; MACROCYTOSIS 1+
[2023-04-04 04:53] LABS: INR 1.02 (0.83-1.09); PROTHROMBIN TIME (PATIENT) 11.8 SEC (9.7-13.0)
[2023-04-04 04:56] LABS: ACTIVATED PTT 30.4 SECONDS (25.2-36.5)
[2023-04-04] MEDS ORDERED: FOLIC ACID INJECTION - 1 MG, THIAMINE HCL 100 MG, MULTIVIT INJECTION ADULT 10 ML in SOD... IVPB ONE (05:30)
[2023-04-04] MEDS ORDERED: LORazepam 1 MG TABLET ONE (05:34)
[2023-04-04] MEDS: LORazepam 1 MG TABLET PO PRN (05:46)
[2023-04-04] MEDS ORDERED: LEVOTHYROXINE NA 25 MCG TABLET (FP) PO SCH (07:00)
[2023-04-04] MEDS: TAMSULOSIN HCL 0.4 MG CAP PO SCH ×2 (08:28→21:39)
[2023-04-04] MEDS: LEVOTHYROXINE 25 MCG, LEVOTHYROXINE 112 MCG PO SCH (08:38)
[2023-04-04 09:11] LABS: HEMATOCRIT 34.9 % (35.4-49); HEMOGLOBIN 12.2 GM/dL (11.7-16.9); MCH 33.8 pg (25.7-33.7); MEAN CELL VOLUME 96.6 fl (80-96); MEAN PLT VOLUME 7.7 fl (7.5-11.1); PLATELET COUNT 283 10^3/uL (134-434); RBC 3.61 M/mm3 (4.00-5.60); WHITE BLOOD COUNT 4.7 K/mm3 (4.0-10.0)
[2023-04-04 09:23] LABS: POTASSIUM 4.3 mmol/L (3.5-5.1)
[2023-04-04 09:27] LABS: CALCIUM 8.5 mg/dL (8.5-10.1)
[2023-04-04 09:28] LABS: ALBUMIN 3.4 g/dl (3.4-5.0); MAGNESIUM 1.9 mg/dL (1.8-2.4)
[2023-04-04 09:30] LABS: CREATININE 0.8 mg/dL (0.55-1.3); PHOSPHOROUS 3.5 mg/dL (2.5-4.9)
[2023-04-04 09:31] LABS: BILIRUBIN,TOTAL 0.5 mg/dL (0.2-1)
[2023-04-04 09:32] LABS: TOT PROT 7.4 g/dl (6.4-8.2)
[2023-04-04 09:57] LABS: ANISOCYTOSIS 0; HELMET CELLS 0; HOWELL-JOLLY BODIES 0; MACROCYTOSIS 0; OVALOCYTE 0; ROULEAU 0; SICKELED CELLS 0; TARGET CELLS 0; TEAR DROP CELLS 0; TOXIC GRANULATION 0
[2023-04-04] MEDS: FOLIC ACID 1 MG TABLET (FP) PO SCH (10:00)
[2023-04-04] MEDS: ENOXAPARIN NA (PORCINE) 40 MG/0.4 ML DISP.SYRIN SQ SCH (10:00)
[2023-04-04] MEDS: PARoxetine HCL 20 MG TABLET PO SCH (10:00)
[2023-04-04] MEDS: THIAMINE HCL 100 MG TABLET (FP) PO SCH (10:00)
[2023-04-04] MEDS: PANTOPRAZOLE 40 MG TABLET PO SCH (10:00)
[2023-04-04] MEDS: CEFTRIAXONE 1 GM in DEXTROSE 5%-WATER - 50 ML IVPB SCH (10:27)
[2023-04-04] MEDS: CLINDAMYCIN 600MG PREMIX IVPB 600 MG/50 ML BAG IVPB SCH ×2 (11:32→17:02)
[2023-04-04] MEDS: SODIUM CHLORIDE 1,000 ML IV SCH (18:06)
[2023-04-04] MEDS: ATORVASTATIN CA 40 MG TABLET (FP) PO SCH (21:39)
[2023-04-04] MEDS: traZODone HCL 100 MG TABLET (FP) PO SCH (21:39)
[2023-04-05] MEDS: CLINDAMYCIN 600MG PREMIX IVPB 600 MG/50 ML BAG IVPB SCH ×3 (02:21→17:40)
[2023-04-05] MEDS: LEVOTHYROXINE 25 MCG, LEVOTHYROXINE 112 MCG PO SCH (06:50)
[2023-04-05] MEDS: TAMSULOSIN HCL 0.4 MG CAP PO SCH ×2 (08:32→23:04)
[2023-04-05] MEDS: CEFTRIAXONE 1 GM in DEXTROSE 5%-WATER - 50 ML IVPB SCH (10:47)
[2023-04-05] MEDS: ENOXAPARIN NA (PORCINE) 40 MG/0.4 ML DISP.SYRIN SQ SCH (10:47)
[2023-04-05] MEDS: THIAMINE HCL 100 MG TABLET (FP) PO SCH (10:48)
[2023-04-05] MEDS: PANTOPRAZOLE 40 MG TABLET PO SCH (10:48)
[2023-04-05] MEDS: FOLIC ACID 1 MG TABLET (FP) PO SCH (10:48)
[2023-04-05] MEDS: PARoxetine HCL 20 MG TABLET PO SCH (10:48)
[2023-04-05 11:36] LABS: POTASSIUM 3.6 mmol/L (3.5-5.1)
[2023-04-05 11:38] LABS: CALCIUM 7.6 mg/dL (8.5-10.1)
[2023-04-05 11:39] LABS: ALBUMIN 2.8 g/dl (3.4-5.0); BLOOD UREA NITROGEN 16.1 mg/dL (7-18)
[2023-04-05 11:41] LABS: CREATININE 1.1 mg/dL (0.55-1.3)
[2023-04-05 11:43] LABS: BILIRUBIN,TOTAL 0.6 mg/dL (0.2-1); TOT PROT 6.1 g/dl (6.4-8.2)
[2023-04-05] MEDS: SODIUM CHLORIDE 1,000 ML IV SCH (17:17)
[2023-04-05] MEDS: ATORVASTATIN CA 40 MG TABLET (FP) PO SCH (23:04)
[2023-04-05] MEDS: traZODone HCL 100 MG TABLET (FP) PO SCH (23:04)
[2023-04-06] MEDS: CLINDAMYCIN 600MG PREMIX IVPB 600 MG/50 ML BAG IVPB SCH ×3 (01:39→17:13)
[2023-04-06] MEDS: LEVOTHYROXINE 25 MCG, LEVOTHYROXINE 112 MCG PO SCH (06:06)
[2023-04-06] MEDS: SODIUM CHLORIDE 1,000 ML IV SCH ×2 (08:07→20:29)
[2023-04-06] MEDS: THIAMINE HCL 100 MG TABLET (FP) PO SCH (09:23)
[2023-04-06] MEDS: TAMSULOSIN HCL 0.4 MG CAP PO SCH ×2 (09:23→21:33)
[2023-04-06] MEDS: FOLIC ACID 1 MG TABLET (FP) PO SCH (09:23)
[2023-04-06] MEDS: PARoxetine HCL 20 MG TABLET PO SCH (09:23)
[2023-04-06] MEDS: PANTOPRAZOLE 40 MG TABLET PO SCH (09:23)
[2023-04-06] MEDS: LORazepam 1 MG TABLET PO PRN ×2 (09:23→21:33)
[2023-04-06] MEDS: CEFTRIAXONE 1 GM in DEXTROSE 5%-WATER - 50 ML IVPB SCH (09:24)
[2023-04-06] MEDS: ENOXAPARIN NA (PORCINE) 40 MG/0.4 ML DISP.SYRIN SQ SCH (09:30)
[2023-04-06] MEDS: ATORVASTATIN CA 40 MG TABLET (FP) PO SCH (21:33)
[2023-04-06] MEDS: traZODone HCL 100 MG TABLET (FP) PO SCH (21:33)
[2023-04-07] MEDS: CLINDAMYCIN 600MG PREMIX IVPB 600 MG/50 ML BAG IVPB SCH ×3 (02:32→18:22)
[2023-04-07] MEDS: LEVOTHYROXINE 25 MCG, LEVOTHYROXINE 112 MCG PO SCH (06:02)
[2023-04-07 08:42] LABS: POTASSIUM 4.3 mmol/L (3.5-5.1)
[2023-04-07 08:47] LABS: ALBUMIN 2.8 g/dl (3.4-5.0); BLOOD UREA NITROGEN 12.7 mg/dL (7-18); CALCIUM 8.3 mg/dL (8.5-10.1)
[2023-04-07 08:52] LABS: BILIRUBIN,TOTAL 0.8 mg/dL (0.2-1); TOT PROT 6.1 g/dl (6.4-8.2)
[2023-04-07] MEDS: PANTOPRAZOLE 40 MG TABLET PO SCH (09:16)
[2023-04-07] MEDS: FOLIC ACID 1 MG TABLET (FP) PO SCH (09:16)
[2023-04-07] MEDS: THIAMINE HCL 100 MG TABLET (FP) PO SCH (09:16)
[2023-04-07] MEDS: CEFTRIAXONE 1 GM in DEXTROSE 5%-WATER - 50 ML IVPB SCH (09:16)
[2023-04-07] MEDS: ENOXAPARIN NA (PORCINE) 40 MG/0.4 ML DISP.SYRIN SQ SCH (09:16)
[2023-04-07] MEDS: PARoxetine HCL 20 MG TABLET PO SCH (09:16)
[2023-04-07] MEDS: TAMSULOSIN HCL 0.4 MG CAP PO SCH ×2 (09:16→21:48)
[2023-04-07] MEDS: SODIUM CHLORIDE 1,000 ML IV SCH (15:30)
[2023-04-07] MEDS: ATORVASTATIN CA 40 MG TABLET (FP) PO SCH (21:48)
[2023-04-07] MEDS: traZODone HCL 100 MG TABLET (FP) PO SCH (21:48)
[2023-04-08] MEDS: CLINDAMYCIN 600MG PREMIX IVPB 600 MG/50 ML BAG IVPB SCH ×3 (01:50→18:02)
[2023-04-08] MEDS: LEVOTHYROXINE 25 MCG, LEVOTHYROXINE 112 MCG PO SCH (06:01)
[2023-04-08] MEDS: TAMSULOSIN HCL 0.4 MG CAP PO SCH ×2 (08:53→21:14)
[2023-04-08] MEDS: PARoxetine HCL 20 MG TABLET PO SCH (09:01)
[2023-04-08] MEDS: PANTOPRAZOLE 40 MG TABLET PO SCH (09:01)
[2023-04-08] MEDS: THIAMINE HCL 100 MG TABLET (FP) PO SCH (09:01)
[2023-04-08] MEDS: ENOXAPARIN NA (PORCINE) 40 MG/0.4 ML DISP.SYRIN SQ SCH (09:02)
[2023-04-08] MEDS: FOLIC ACID 1 MG TABLET (FP) PO SCH (09:09)
[2023-04-08] MEDS: CEFTRIAXONE 1 GM in DEXTROSE 5%-WATER - 50 ML IVPB SCH (09:10)
[2023-04-08] MEDS: SODIUM CHLORIDE 1,000 ML IV SCH (16:45)
[2023-04-08] MEDS ORDERED: LORazepam 1 MG TABLET PO SCH (16:45)
[2023-04-08] MEDS: ATORVASTATIN CA 40 MG TABLET (FP) PO SCH (21:13)
[2023-04-08] MEDS: traZODone HCL 100 MG TABLET (FP) PO SCH (21:14)
[2023-04-09] MEDS: CLINDAMYCIN 600MG PREMIX IVPB 600 MG/50 ML BAG IVPB SCH ×3 (02:42→17:53)
[2023-04-09] MEDS: LEVOTHYROXINE 25 MCG, LEVOTHYROXINE 112 MCG PO SCH (06:08)
[2023-04-09] MEDS: TAMSULOSIN HCL 0.4 MG CAP PO SCH ×2 (08:11→21:51)
[2023-04-09] MEDS: CEFTRIAXONE 1 GM in DEXTROSE 5%-WATER - 50 ML IVPB SCH (10:24)
[2023-04-09] MEDS: PARoxetine HCL 20 MG TABLET PO SCH (10:24)
[2023-04-09] MEDS: FOLIC ACID 1 MG TABLET (FP) PO SCH (10:24)
[2023-04-09] MEDS: PANTOPRAZOLE 40 MG TABLET PO SCH (10:24)
[2023-04-09] MEDS: THIAMINE HCL 100 MG TABLET (FP) PO SCH (10:24)
[2023-04-09] MEDS: ENOXAPARIN NA (PORCINE) 40 MG/0.4 ML DISP.SYRIN SQ SCH (10:24)
[2023-04-09] MEDS: ATORVASTATIN CA 40 MG TABLET (FP) PO SCH (21:51)
[2023-04-09] MEDS: traZODone HCL 100 MG TABLET (FP) PO SCH (21:51)
[2023-04-09] MEDS: SODIUM CHLORIDE 1,000 ML IV SCH (21:51)
[2023-04-10] MEDS: CLINDAMYCIN 600MG PREMIX IVPB 600 MG/50 ML BAG IVPB SCH ×2 (01:52→10:08)
[2023-04-10] MEDS: LEVOTHYROXINE 25 MCG, LEVOTHYROXINE 112 MCG PO SCH (06:08)
[2023-04-10] MEDS: TAMSULOSIN HCL 0.4 MG CAP PO SCH ×2 (09:13→21:29)
[2023-04-10] MEDS: FOLIC ACID 1 MG TABLET (FP) PO SCH (09:13)
[2023-04-10] MEDS: THIAMINE HCL 100 MG TABLET (FP) PO SCH (09:14)
[2023-04-10] MEDS: CEFTRIAXONE 1 GM in DEXTROSE 5%-WATER - 50 ML IVPB SCH (09:14)
[2023-04-10] MEDS: PARoxetine HCL 20 MG TABLET PO SCH (09:14)
[2023-04-10] MEDS: PANTOPRAZOLE 40 MG TABLET PO SCH (09:14)
[2023-04-10] MEDS: ENOXAPARIN NA (PORCINE) 40 MG/0.4 ML DISP.SYRIN SQ SCH (09:14)
[2023-04-10 11:08] VITALS: BMI 27.7
[2023-04-10] MEDS: CLINDAMYCIN IN 0.9 % SOD CHLOR 600 MG/50 ML BAG IVPB SCH (17:48)
[2023-04-10] MEDS: traZODone HCL 100 MG TABLET (FP) PO SCH (21:29)
[2023-04-10] MEDS: ATORVASTATIN CA 40 MG TABLET (FP) PO SCH (21:29)
[2023-04-11] MEDS: CLINDAMYCIN IN 0.9 % SOD CHLOR 600 MG/50 ML BAG IVPB SCH ×2 (03:25→10:08)
[2023-04-11] MEDS: LEVOTHYROXINE 25 MCG, LEVOTHYROXINE 112 MCG PO SCH (06:01)
[2023-04-11] MEDS ORDERED: cefTRIAXone SODIUM 1 GM VIAL ONE (09:16)
[2023-04-11] MEDS: CEFTRIAXONE 1 GM in DEXTROSE 5%-WATER - 50 ML IVPB SCH (09:23)
[2023-04-11] MEDS: THIAMINE HCL 100 MG TABLET (FP) PO SCH (09:26)
[2023-04-11] MEDS: TAMSULOSIN HCL 0.4 MG CAP PO SCH (09:26)
[2023-04-11] MEDS: PARoxetine HCL 20 MG TABLET PO SCH (09:26)
[2023-04-11] MEDS: PANTOPRAZOLE 40 MG TABLET PO SCH (09:26)
[2023-04-11] MEDS: FOLIC ACID 1 MG TABLET (FP) PO SCH (09:26)
[2023-04-11] MEDS: ENOXAPARIN NA (PORCINE) 40 MG/0.4 ML DISP.SYRIN SQ SCH (09:27)
[2023-04-11 09:32] VITALS: BP 145/82; PULSE 78; RESP 18; TEMP 98.2
== END 2023-04-11 11:36 | disposition home or self-care (01) | DRG 194 ==
LOC: JER 21:59 → JERBED 04-04 03:01 → J6S 04-04 07:31
PROVIDERS: ADMIT Internal Medicine; ATTEND Family Medicine
DX: J18.9 Pneumonia, unspecified organism (principal); E87.1 Hypo-osmolality and hyponatremia; F10.239 Alcohol dependence with withdrawal, unspecified; J44.0 Chronic obstructive pulmonary disease with (acute) lower respiratory infection; I44.4 Left anterior fascicular block; E03.9 Hypothyroidism, unspecified; I10 Essential (primary) hypertension; E78.5 Hyperlipidemia, unspecified; N40.0 Benign prostatic hyperplasia without lower urinary tract symptoms; B18.2 Chronic viral hepatitis C; Z93.0 Tracheostomy status; I77.810 Thoracic aortic ectasia; G93.89 Other specified disorders of brain; Z85.21 Personal history of malignant neoplasm of larynx
CPT/HCPCS: 0241U-QW; 36415; 70450-TC; 70486-TC; 71046-TC-FY; 71250-TC; 72125-TC; 80053; 80307; 82436; 83735; 83930; 83935; 84100; 84133; 84300; 84439; 84443; 84484; 85025; 85610; 85730; 86850; 86900; 86901; 87040; 87899; 93005; 93010; 97116-GP; 97162-GP; 99291; 99292

== ENCOUNTER 2023-09-18 17:15 | Emergency (ER) | payer OTHER ==
[2023-09-18 17:58] VITALS: BP 112/83; PULSE 77; RESP 20; TEMP 99.6; BMI 26.2
== END 2023-09-18 22:58 | disposition home or self-care (01) ==
LOC: JER 17:15
DX: R06.02 Shortness of breath (principal); Z20.822 Contact with and (suspected) exposure to COVID-19
CPT/HCPCS: 0241U-QW; 71046-TC-FY; 99284-25

== ENCOUNTER 2023-12-26 18:41 | Emergency (ER) | payer OTHER ==
[2023-12-26 19:16] VITALS: BP 118/94; PULSE 81; RESP 18; TEMP 97.9; BMI 24.5
[2023-12-26 19:45] LABS: BASO % 0.5 % (0-2.0); EOS % 0.8 % (0-4.5); HEMATOCRIT 32.6 % (35.4-49); HEMOGLOBIN 11.4 GM/dL (11.7-16.9); LYMPH % 14.6 % (8-40); MCH 36.2 pg (25.7-33.7); MCHC 35.1 g/dl (32.0-35.9); MEAN CELL VOLUME 103.2 fl (80-96); MEAN PLT VOLUME 7.3 fl (7.5-11.1); MONO % 5.2 % (3.8-10.2); NEUT % 78.9 % (42.8-82.8); PLATELET COUNT 309 10^3/uL (134-434); RBC 3.15 M/mm3 (4.00-5.60); RDW 15.9 % (11.9-15.9); WHITE BLOOD COUNT 6.5 K/mm3 (4.0-10.0)
[2023-12-26 20:01] LABS: POTASSIUM 3.6 mmol/L (3.5-5.1)
[2023-12-26 20:03] LABS: CALCIUM 7.6 mg/dL (8.5-10.1)
[2023-12-26 20:04] LABS: ALBUMIN 2.5 g/dl (3.4-5.0); BLOOD UREA NITROGEN 16.3 mg/dL (7-18)
[2023-12-26 20:07] LABS: CREATININE 1.1 mg/dL (0.55-1.3)
[2023-12-26 20:08] LABS: BILIRUBIN,TOTAL 0.9 mg/dL (0.2-1)
[2023-12-27 00:34] LABS: URINE APPEARANCE CLEAR; URINE BILIRUBIN NEGATIVE (NEGATIVE); URINE COLOR DK YELLOW; URINE GLUCOSE (UA) NEGATIVE (NEGATIVE); URINE KETONE TRACE (NEGATIVE); URINE LEUK ESTERASE NEGATIVE (NEGATIVE); URINE NITRITE NEGATIVE (NEGATIVE); URINE PROTEIN TRACE (NEGATIVE)
== END 2023-12-27 06:55 | disposition home or self-care (01) ==
LOC: JER 18:41
DX: R10.31 Right lower quadrant pain (principal)
CPT/HCPCS: 36415; 74177-TC; 80053; 81003; 83690; 85025; 87086; 99285-25; Q9967